=== PATIENT | female | born 1945 | race Caucasian/White ===

== ENCOUNTER 2022-12-26 14:30 | Inpatient (IN) | payer MEDICARE ==
--- OUTSIDE RECORDS SUMMARY | 2022-12-26 14:36 | XMS REPORT | Continuity of Care Document ---
:1945 Author Organization [facility] t Address [address] [place] [address] Care Team Providers Name Role Phone Yrn Sher Attending Clinician Unavailable Yvette Gavin Attending Clinician Unavailable Peyton Hollis Attending Clinician Unavailable [id number] Attending Clinician Unavailable Nery Maurice Attending Clinician RON_S Attending Clinician Unavailable [id number] Admitting Clinician Unavailable RON_Lizeth Admitting Clinician Unavailable Payers Payer Name Policy Type Policy Number Effective Date Expiration Date Lizeth ayoub [facility] [id number] FORMERLY [facility] [id number] 2022 (MEDICARE 00:00:00 REPLACEMENT HMO) Problems Condition Condition Condition Status Onset Resolution Last Treating Co mments Source Name Details Category Date Date Treatment Clinician Date [id number] 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 Medical heart with Center stable angina pectoris Heart Heart Problem Common attack attack [facility] [id number] CKD Problem Common (chronic [facility] kidney - [facility] disease) 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 [facility] disease disease [facility] Anemia Anemia Problem [facility] Sleep Sleep Problem Common apnea apnea [facility] Malignant Cancer of Problem Com mon tumor of right [facility] kidney kidney [facility] Gout Gout Problem [facility] [id number] Complex Problem Commo n renal cyst [facility] Congestive CHF Problem Commo n heart (congestiv [facility] failure e heart - [facility] failure) [facility] Hypothyroi Hypothyroi Problem C [facility] dism dism [facility] Allergic Allergic Problem Commo n rhinitis rhinitis [facility] [id number] Longstandi Problem Co mmon ng [facility] Type II Diabetes Problem Common diabetes DMII [facility] mellitus without - [facility] without complicati complicati [facility] Allergies, Adverse Reactions, Alerts Allergy Allergy Status Severity Reaction(s) Onset Inactive Treating Comm ents Source Name Type Date Date Clinician [id number] Drug Active Unknown Common 82 allergy [facility] duloxeti duloxeti Active Unknown Commo n ne ne [facility] pregabal pregabal Active Unknown Commo n in in [facility] Social History Social Habit Start Date Stop Date Quantity Comments Source Sex Assigned At Com mon [facility] History of Tobacco Use Co mmon [facility] Smoking Status Start Date Stop Date Source Never Smoker [facility] Medications Ordered Filled Start Stop Current Ordering Indication Dosage Frequency Signature Comments Components Source Medication Medication Date Date Medication? Clinician (SIG) Name Name LORazepam 1 LORazepam 2021-09 No BID LORazepam MG MG 2-19 1 MG 00:00: 00 LORazepam 1 LORazepam 2021-09 No BID LORazepam MG MG 2-19 1 MG 00:00: 00 LORazepam 1 LORazepam 2021-09 No BID LORazepam MG MG 2-19 1 MG 00:00: 00 LORazepam 1 LORazepam 2021-09 No BID LORazepam MG MG 2-19 1 MG 00:00: 00 LORazepam 1 LORazepam 1 2021-09 No BID LORazepam MG MG 2-19 1 MG 00:00: 00 LORazepam 1 LORazepam 1 2021-09 No BID LORazepam MG MG 2-19 1 MG 00:00: 00 Montelukast Montelukast No 1{table QD Montelukas Sodium 10 Sodium 10 t} t Sodium MG MG 10 MG Gabapentin Gabapentin No 2{table QID Gabapentin 600 MG 600 MG t} 600 MG Potassium Potassium No 1{capsu BID Potassium Chloride 20 Chloride 20 le} Chloride MEQ MEQ 20 MEQ Fish Oil Fish Oil No Fish Oil predniSONE predniSONE No predniSONE Metoprolol Metoprolol No 1{table BID Metoprolol Tartrate 25 Tartrate 25 t_with_ Tartrate MG MG food} 25 MG Atorvastati Atorvastati No 1{table QD Atorvastat n Calcium n Calcium t} in Calcium 80 MG 80 MG 80 MG Eliquis 5 Eliquis 5 No Eliquis 5 mg 5 mg mg 5 mg mg 5 mg Biotin Biotin No Biotin Torsemide Torsemide No 1{table QD Torsemide 100 MG 100 MG t} 100 MG Allopurinol Allopurinol No Allopurino 300 MG 300 MG l 300 MG Albuterol Albuterol No Albuterol Sulfate HFA Sulfate HFA Sulfate HFA Levothyroxi Levothyroxi No QD Levothyrox ne Sodium ne Sodium ine Sodium 125 MCG 125 MCG 125 MCG Nitroglycer Nitroglycer No Nitroglyce in in rin Fish Oil Fish Oil No Fish Oil NexIUM NexIUM No NexIUM predniSONE predniSONE No predniSONE Metoprolol Metoprolol No 1{table BID Metoprolol Tartrate 25 Tartrate 25 t_with_ Tartrate MG MG food} 25 MG Albuterol Albuterol No Albuterol Sulfate HFA Sulfate HFA Sulfate HFA Biotin Biotin No Biotin Allopurinol Allopurinol No Allopurino 300 MG 300 MG l 300 MG Allopurinol Allopurinol No 1{table QD Allopurino 300 MG 300 MG t} l 300 MG Torsemide Torsemide No 1{table QD Torsemide 100 MG 100 MG t} 100 MG Montelukast Montelukast No 1{table QD Montelukas Sodium 10 Sodium 10 t} t Sodium MG MG 10 MG DiphenhydrA DiphenhydrA No Diphenhydr MINE MINE AMINE Citrate Citrate Citrate Gabapentin Gabapentin No 1{table Gabapentin 600 MG 600 MG t} 600 MG Levothyroxi Levothyroxi No QD Levothyrox ne Sodium ne Sodium ine Sodium 125 MCG 125 MCG 125 MCG Atorvastati Atorvastati No 1{table QD Atorvastat n Calcium n Calcium t} in Calcium 80 MG 80 MG 80 MG Eliquis 5 Eliquis 5 No Eliquis 5 mg 5 mg mg 5 mg mg 5 mg Potassium Potassium No 1{capsu BID Potassium Chloride 20 Chloride 20 le} Chloride MEQ MEQ 20 MEQ Nitroglycer Nitroglycer No Nitroglyce in in rin Fish Oil Fish Oil No Fish Oil NexIUM NexIUM No NexIUM predniSONE predniSONE No predniSONE Metoprolol Metoprolol No 1{table BID Metoprolol Tartrate 25 Tartrate 25 t_with_ Tartrate MG MG food} 25 MG Albuterol Albuterol No Albuterol Sulfate HFA Sulfate HFA Sulfate HFA Biotin Biotin No Biotin Allopurinol Allopurinol No Allopurino 300 MG 300 MG l 300 MG Allopurinol Allopurinol No 1{table QD Allopurino 300 MG 300 MG t} l 300 MG Torsemide Torsemide No 1{table QD Torsemide 100 MG 100 MG t} 100 MG Montelukast Montelukast No 1{table QD Montelukas Sodium 10 Sodium 10 t} t Sodium MG MG 10 MG DiphenhydrA DiphenhydrA No Diphenhydr MINE MINE AMINE Citrate Citrate Citrate Gabapentin Gabapentin No 1{table Gabapentin 600 MG 600 MG t} 600 MG Levothyroxi Levothyroxi No QD Levothyrox ne Sodium ne Sodium ine Sodium 125 MCG 125 MCG 125 MCG Atorvastati Atorvastati No 1{table QD Atorvastat n Calcium n Calcium t} in Calcium 80 MG 80 MG 80 MG Eliquis 5 Eliquis 5 No Eliquis 5 mg 5 mg mg 5 mg mg 5 mg Potassium Potassium No 1{capsu BID Potassium Chloride 20 Chloride 20 le} Chloride MEQ MEQ 20 MEQ Nitroglycer Nitroglycer No Nitroglyce in in rin Fish Oil Fish Oil No Fish Oil NexIUM NexIUM No NexIUM Gabapentin Gabapentin No 1{table Gabapentin 600 MG 600 MG t} 600 MG Metoprolol Metoprolol No 1{table BID Metoprolol Tartrate 25 Tartrate 25 t_with_ Tartrate MG MG food} 25 MG Albuterol Albuterol No Albuterol Sulfate HFA Sulfate HFA Sulfate HFA Biotin Biotin No Biotin Allopurinol Allopurinol No Allopurino 300 MG 300 MG l 300 MG Allopurinol Allopurinol No 1{table QD Allopurino 300 MG 300 MG t} l 300 MG predniSONE predniSONE No predniSONE Torsemide Torsemide No 1{table QD Torsemide 100 MG 100 MG t} 100 MG DiphenhydrA DiphenhydrA No Diphenhydr MINE MINE AMINE Citrate Citrate Citrate Eliquis 5 Eliquis 5 No Eliquis 5 mg 5 mg mg 5 mg mg 5 mg Levothyroxi Levothyroxi No QD Levothyrox ne Sodium ne Sodium ine Sodium 125 MCG 125 MCG 125 MCG Atorvastati Atorvastati No 1{table QD Atorvastat n Calcium n Calcium t} in Calcium 80 MG 80 MG 80 MG Montelukast Montelukast No 1{table QD Montelukas Sodium 10 Sodium 10 t} t Sodium MG MG 10 MG Potassium Potassium No 1{capsu BID Potassium Chloride 20 Chloride 20 le} Chloride MEQ MEQ 20 MEQ Nitroglycer Nitroglycer No Nitroglyce in in rin Fish Oil Fish Oil No Fish Oil NexIUM NexIUM No NexIUM Gabapentin Gabapentin No 1{table Gabapentin 600 MG 600 MG t} 600 MG Metoprolol Metoprolol No 1{table BID Metoprolol Tartrate 25 Tartrate 25 t_with_ Tartrate MG MG food} 25 MG Albuterol Albuterol No Albuterol Sulfate HFA Sulfate HFA Sulfate HFA Biotin Biotin No Biotin Allopurinol Allopurinol No Allopurino 300 MG 300 MG l 300 MG Allopurinol Allopurinol No 1{table QD Allopurino 300 MG 300 MG t} l 300 MG predniSONE predniSONE No predniSONE Torsemide Torsemide No 1{table QD Torsemide 100 MG 100 MG t} 100 MG DiphenhydrA DiphenhydrA No Diphenhydr MINE MINE AMINE Citrate Citrate Citrate Eliquis 5 Eliquis 5 No Eliquis 5 mg 5 mg mg 5 mg mg 5 mg Levothyroxi Levothyroxi No QD Levothyrox ne Sodium ne Sodium ine Sodium 125 MCG 125 MCG 125 MCG Atorvastati Atorvastati No 1{table QD Atorvastat n Calcium n Calcium t} in Calcium 80 MG 80 MG 80 MG Montelukast Montelukast No 1{table QD Montelukas Sodium 10 Sodium 10 t} t Sodium MG MG 10 MG Potassium Potassium No 1{capsu BID Potassium Chloride 20 Chloride 20 le} Chloride MEQ MEQ 20 MEQ Nitroglycer Nitroglycer No Nitroglyce in in rin Fish Oil Fish Oil No Fish Oil NexIUM NexIUM No NexIUM Gabapentin Gabapentin No 1{table Gabapentin 600 MG 600 MG t} 600 MG Metoprolol Metoprolol No 1{table BID Metoprolol Tartrate 25 Tartrate 25 t_with_ Tartrate MG MG food} 25 MG Albuterol Albuterol No Albuterol Sulfate HFA Sulfate HFA Sulfate HFA Biotin Biotin No Biotin Allopurinol Allopurinol No Allopurino 300 MG 300 MG l 300 MG Allopurinol Allopurinol No 1{table QD Allopurino 300 MG 300 MG t} l 300 MG predniSONE predniSONE No predniSONE Torsemide Torsemide No 1{table QD Torsemide 100 MG 100 MG t} 100 MG DiphenhydrA DiphenhydrA No Diphenhydr MINE MINE AMINE Citrate Citrate Citrate Eliquis 5 Eliquis 5 No Eliquis 5 mg 5 mg mg 5 mg mg 5 mg Levothyroxi Levothyroxi No QD Levothyrox ne Sodium ne Sodium ine Sodium 125 MCG 125 MCG 125 MCG Atorvastati Atorvastati No 1{table QD Atorvastat n Calcium n Calcium t} in Calcium 80 MG 80 MG 80 MG Montelukast Montelukast No 1{table QD Montelukas Sodium 10 Sodium 10 t} t Sodium MG MG 10 MG Potassium Potassium No 1{capsu BID Potassium Chloride 20 Chloride 20 le} Chloride MEQ MEQ 20 MEQ Nitroglycer Nitroglycer No Nitroglyce in in rin Fish Oil Fish Oil No Fish Oil NexIUM NexIUM No NexIUM Gabapentin Gabapentin No 1{table Gabapentin 600 MG 600 MG t} 600 MG Metoprolol Metoprolol No 1{table BID Metoprolol Tartrate 25 Tartrate 25 t_with_ Tartrate MG MG food} 25 MG Albuterol Albuterol No Albuterol Sulfate HFA Sulfate HFA Sulfate HFA Biotin Biotin No Biotin Allopurinol Allopurinol No Allopurino 300 MG 300 MG l 300 MG Allopurinol Allopurinol No 1{table QD Allopurino 300 MG 300 MG t} l 300 MG predniSONE predniSONE No predniSONE Torsemide Torsemide No 1{table QD Torsemide 100 MG 100 MG t} 100 MG DiphenhydrA DiphenhydrA No Diphenhydr MINE MINE AMINE Citrate Citrate Citrate Eliquis 5 Eliquis 5 No Eliquis 5 mg 5 mg mg 5 mg mg 5 mg Levothyroxi Levothyroxi No QD Levothyrox ne Sodium ne Sodium ine Sodium 125 MCG 125 MCG 125 MCG Atorvastati Atorvastati No 1{table QD Atorvastat n Calcium n Calcium t} in Calcium 80 MG 80 MG 80 MG Montelukast Montelukast No 1{table QD Montelukas Sodium 10 Sodium 10 t} t Sodium MG MG 10 MG Potassium Potassium No 1{capsu BID Potassium Chloride 20 Chloride 20 le} Chloride MEQ MEQ 20 MEQ NexIUM NexIUM No NexIUM DiphenhydrA DiphenhydrA No Diphenhydr MINE MINE AMINE Citrate Citrate Citrate Nitroglycer Nitroglycer No Nitroglyce in in rin LORazepam 1 LORazepam 1 No 1{table BID LORazepam MG MG t} 1 MG Atorvastati Atorvastati No 1{table QD Atorvastat n Calcium n Calcium t} in Calcium 80 MG 80 MG 80 MG Potassium Potassium No 1{capsu BID Potassium Chloride 20 Chloride 20 le} Chloride MEQ MEQ 20 MEQ Montelukast Montelukast No 1{table QD Montelukas Sodium 10 Sodium 10 t} t Sodium MG MG 10 MG Gabapentin Gabapentin No 2{table QID Gabapentin 600 MG 600 MG t} 600 MG predniSONE predniSONE No predniSONE Metoprolol Metoprolol No 1{table BID Metoprolol Tartrate 25 Tartrate 25 t_with_ Tartrate MG MG food} 25 MG Albuterol Albuterol No Albuterol Sulfate HFA Sulfate HFA Sulfate HFA Eliquis 5 Eliquis 5 No Eliquis 5 mg 5 mg mg 5 mg mg 5 mg Allopurinol Allopurinol No 1{table QD Allopurino 300 MG 300 MG t} l 300 MG Torsemide Torsemide No 1{table QD Torsemide 100 MG 100 MG t} 100 MG Fish Oil Fish Oil No Fish Oil Biotin Biotin No Biotin Levothyroxi Levothyroxi No QD Levothyrox ne Sodium ne Sodium ine Sodium 125 MCG 125 MCG 125 MCG NexIUM NexIUM No NexIUM DiphenhydrA DiphenhydrA No Diphenhydr MINE MINE AMINE Citrate Citrate Citrate Nitroglycer Nitroglycer No Nitroglyce in in rin LORazepam 1 LORazepam 1 No 1{table BID LORazepam MG MG t} 1 MG Montelukast Montelukast No 1{table QD Montelukas Sodium 10 Sodium 10 t} t Sodium MG MG 10 MG Gabapentin Gabapentin No 2{table QID Gabapentin 600 MG 600 MG t} 600 MG Potassium Potassium No 1{capsu BID Potassium Chloride 20 Chloride 20 le} Chloride MEQ MEQ 20 MEQ Fish Oil Fish Oil No Fish Oil predniSONE predniSONE No predniSONE Metoprolol Metoprolol No 1{table BID Metoprolol Tartrate 25 Tartrate 25 t_with_ Tartrate MG MG food} 25 MG Atorvastati Atorvastati No 1{table QD Atorvastat n Calcium n Calcium t} in Calcium 80 MG 80 MG 80 MG Eliquis 5 Eliquis 5 No Eliquis 5 mg 5 mg mg 5 mg mg 5 mg Biotin Biotin No Biotin Torsemide Torsemide No 1{table QD Torsemide 100 MG 100 MG t} 100 MG Allopurinol Allopurinol No Allopurino 300 MG 300 MG l 300 MG Albuterol Albuterol No Albuterol Sulfate HFA Sulfate HFA Sulfate HFA Levothyroxi Levothyroxi No QD Levothyrox ne Sodium ne Sodium ine Sodium 125 MCG 125 MCG 125 MCG NexIUM NexIUM No NexIUM DiphenhydrA DiphenhydrA No Diphenhydr MINE MINE AMINE Citrate Citrate Citrate Nitroglycer Nitroglycer No Nitroglyce in in rin LORazepam 1 LORazepam 1 No 1{table BID LORazepam MG MG t} 1 MG Montelukast Montelukast No 1{table QD Montelukas Sodium 10 Sodium 10 t} t Sodium MG MG 10 MG Gabapentin Gabapentin No 2{table QID Gabapentin 600 MG 600 MG t} 600 MG Potassium Potassium No 1{capsu BID Potassium Chloride 20 Chloride 20 le} Chloride MEQ MEQ 20 MEQ Fish Oil Fish Oil No Fish Oil predniSONE predniSONE No predniSONE Metoprolol Metoprolol No 1{table BID Metoprolol Tartrate 25 Tartrate 25 t_with_ Tartrate MG MG food} 25 MG Atorvastati Atorvastati No 1{table QD Atorvastat n Calcium n Calcium t} in Calcium 80 MG 80 MG 80 MG Eliquis 5 Eliquis 5 No Eliquis 5 mg 5 mg mg 5 mg mg 5 mg Biotin Biotin No Biotin Torsemide Torsemide No 1{table QD Torsemide 100 MG 100 MG t} 100 MG Allopurinol Allopurinol No Allopurino 300 MG 300 MG l 300 MG Albuterol Albuterol No Albuterol Sulfate HFA Sulfate HFA Sulfate HFA Levothyroxi Levothyroxi No QD Levothyrox ne Sodium ne Sodium ine Sodium 125 MCG 125 MCG 125 MCG NexIUM NexIUM No NexIUM DiphenhydrA DiphenhydrA No Diphenhydr MINE MINE AMINE Citrate Citrate Citrate Nitroglycer Nitroglycer No Nitroglyce in in rin LORazepam 1 LORazepam 1 No 1{table BID LORazepam MG MG t} 1 MG Vital Signs Vital Name Observation Time Observation Value Comments Source height 2022-07-20 14:00:00 65.00 [in_i] [facility] weight 2022-07-20 14:00:00 200.8 [lb_av] [facility] temperature 2022-07-20 14:00:00 97.3 [degF] [facility] bmi 2022-07-20 14:00:00 33.41 kg/m2 [facility] oximetry 2022-07-20 14:00:00 99 % [facility] respiratory rate 2022-07-20 14:00:00 18 /min Comm on [facility] blood pressure 2022-07-20 14:00:00 112 mm[Hg] [facility] systolic [facility] blood pressure 2022-07-20 14:00:00 55 mm[Hg] [facility] diastolic [facility] Procedures This patient has no known procedures. Encounters Start End Encounter Admission Attending Care Care Encounter Source Date/Time Date/Time Type Type Clinicians Facility Department ID 2022-10-17 Outpatient Nikky, STD[facility] [id number] Common 17:00:01 Yrn [id number] [facility] 2022-09-19 Outpatient Leslye, [facility] [id number] Common 10:22:02 Yvette [id number] [facility] 2022-08-24 Outpatient Peyton Hollis [facility] [id number] Common 08:57:02 [id number] [facility] 2022-07-21 Outpatient Peyton Hollis [facility] [id number] Common 15:20:01 [facility] 2022-07-20 Outpatient Peyton Hollis [facility] [id number] Common 13:03:05 [facility] 2021-11-17 Outpatient 3 [id number] [facility] OTH [id number] [facility] 10:50:01 3092021-11-16 Outpatient 3 [id number] [facility] REF [id number] [facility] 10:46:48 0302021-10-06 Outpatient 3 [id number] [facility] REF [id number] [facility] 13:31:08 12152021-10-06 Outpatient 3 [id number] [facility] REF [id number] [facility] 13:30:10 12132021-10-06 Outpatient 3 [id number] [facility] REF [id number] [facility] 13:29:18 12122022-12-11 2022-12-11 [facility] [id number] [facility] [id number] [facility] 16:30:00 17:30:00 Erwinna [id number] [facility] [id number] 2022-11-20 2022-11-20 [place] [id number] 00:00:00 00:00:00 [id number] [facility] 2022-10-06 2022-10-06 (TEL) STLMLC ST[facility] [id number] Co mmon 00:00:00 00:00:00 [facility] 2022-09-29 2022-09-29 (TEL) STLMLC ST[facility] [id number] Co mmon 00:00:00 00:00:00 [facility] 2022-09-26 2022-09-26 (TEL) STLMLC ST[facility] [id number] Co mmon 00:00:00 00:00:00 [facility] 2022-09-19 2022-09-19 (TEL) STLMLC ST[facility] [id number] Co mmon 00:00:00 00:00:00 [facility] 2022-08-28 2022-08-28 OL DIG E/M STLMLC ST[facility] [id number] Common 00:00:00 00:00:00 SVC 11-20 Spir it MIN [facility] 2022-08-27 2022-08-27 (TEL) STLMLC ST[facility]MLC [id number] Co mmon 00:00:00 00:00:00 [facility] 2022-08-15 2022-08-15 (TEL) STLMLC STL[facility]C [id number] Co mmon 00:00:00 00:00:00 [facility] 2022-08-15 2022-08-15 (TEL) STLMLC ST[facility] [id number] Co mmon 00:00:00 00:00:00 [facility] 2022-07-28 2022-07-28 Outpatient DMG DMG [id number] [facility] 00:00:00 00:00:00 [id number] [facility] 2022-07-24 2022-07-24 (TEL) STLMLC ST[facility]C [id number] Co mmon 00:00:00 00:00:00 [facility] 2022-07-20 2022-07-20 OFFICE STLMLC ST[facility]MLC [id number] Co mmon 00:00:00 00:00:00 VISIT [facility] it PT LEVEL 2 - [facility] Results This patient has no known results.
--- NOTE | 2022-12-26 15:12 | RAD REPORT ---
EXAM DESCRIPTION: CT - Ct Stroke Brain Wo Cont - 12/26/2022 3:01 pm CLINICAL HISTORY: STROKE ALERT COMPARISON: No comparisons TECHNIQUE: All CT scans are performed using dose optimization technique as appropriate and may inclu de automated exposure control or mA/KV adjustment according to patient size. FINDINGS: No intracranial hemorrhage, hydrocephalus or extra-axial fluid collection.Mild brain atrop hy.No areas of brain edema or evidence of midline shift. The paranasal sinuses and mastoids are clear. The calvarium is intact. IMPRESSION: No acute intracranial abnormality.
[2022-12-26] MEDS ORDERED: FAMOTIDINE 20 MG/2 ML VIAL IV ONE (15:19)
[2022-12-26] MEDS ORDERED: DIPHENHYDRAMINE 50 MG/ML VIAL ONE (15:19)
[2022-12-26] MEDS ORDERED: METHYLPREDNISOLONE 125 MG INJ ONE (15:19)
[2022-12-26 15:26] LABS: Hematocrit 32.5 % (36.0-45.0); Lymphocytes % 24.3 % (15.3-44.8); MCV 98.9 fL (80-100); MPV 8.3 fL (7.6-11.3); RBC Red Blood Cell Count 3.29 M/uL (3.86-4.86)
[2022-12-26 15:30] LABS: Protime INR 1.55
[2022-12-26 15:43] LABS: Albumin 3.9 g/dL (3.4-5.0); Bilirubin Direct 0.2 mg/dL (0-0.2); Bilirubin Total 0.6 mg/dL (0.2-1.0); Magnesium 2.4 mg/dL (1.6-2.4); Protein, Total 7.4 g/dL (6.4-8.2); Troponin High Sensitivity 14.2 pg/mL (<58.9)
--- NOTE | 2022-12-26 15:48 | RAD REPORT ---
EXAM DESCRIPTION: RAD - Chest Single View - 12/26/2022 3:33 pm CLINICAL HISTORY: CVA Chest pain. COMPARISON: <Comparisons> FINDINGS: Portable technique limits examination quality. Mild interstitial pulmonary edema. The heart is moderately enlarged. Dual lead pacer device is presen t.Sternotomy wires noted. IMPRESSION: Mild to moderate CHF.
--- NOTE | 2022-12-26 16:35 | RAD REPORT ---
EXAM DESCRIPTION: CT - Head angio - 12/26/2022 4:24 pm CLINICAL HISTORY: cva Headache, drowsiness, CVA symptomology COMPARISON: Ct Stroke Brain Wo Cont dated 12/26/2022 TECHNIQUE: CT angiography of the head was performed with MIPs. All CT scans are performed using dose optimization technique as appropriate and may include automated exposure control or mA/KV adjustment according to patient size. FINDINGS: No evidence of large vessel occlusion. No evidence of aneurysm is detected. No flow-limiti ng stenosis or vascular malformation identified. Antegrade flow is seen in the vertebral arteries. Left vertebral artery is dominant with moderate ath erosclerosis. The visualized dural venous sinuses are patent. IMPRESSION: No significant flow abnormality is detected.
--- NOTE | 2022-12-26 16:38 | RAD REPORT ---
EXAM DESCRIPTION: CT - Neck Angio - 12/26/2022 4:24 pm CLINICAL HISTORY: cva COMPARISON: No comparisons TECHNIQUE: CT angiography of the neck vessels was performed with MIPs. All CT scans are performed using dose optimization technique as appropriate and may include automated exposure control or mA/KV adjustment according to patient size. FINDINGS: A left aortic arch is identified with normal three vessel configuration of the great vesse ls. No significant flow abnormality is seen of the common carotid bilaterally. Mild atherosclerotic plaqu ing is seen in both common carotid arteries. There is significant atherosclerotic plaquing noted involving the right proximal internal carotid art ernesto. Stenosis is estimated at 50-60% utilizing NASCET criteria. Moderate plaquing of the left carotid bulb is also seen, predominately hard plaque. Stenosis of less than 50% based on NASCET criteria is suspected. Normal flow is seen within both vertebral arteries. The left vertebral artery appears dominant. IMPRESSION: Moderate hard plaquing is seen in both carotid bulb/proximal internal carotid arteries, greater on the right. The findings result in 50-60% stenosis on the right based on NASCET criteria.
--- NOTE | 2022-12-26 16:50 | ER ---
Nurse's Notes [facility] Name: Felecia Goode Age: 77 yrs Sex: Female : 1945 Arrival Date: 12/26/2022 Time: 14:30 Bed 16 Private MD: Diagnosis: Cerebrovascular accident Presentation: 12/26 14:41 Chief complaint: Patient states: she went to bed last night at approx 2130 after not ap3 feeling well all day. patient states when she woke up this morning at 0115 this morning she noticed she was having right sided weakness and numbness. patient also reported she was having a headache in the hospital social worker hours as well, and that her right eye had some redness to it. Patient went to visit your PCP this morning who sent her over to the ED for further evaluation. Patient now states she "feels foggy". Chief complaint:. Coronavirus screen: At this time, the client does not indicate any symptoms associated with coronavirus-19. Ebola Screen: No symptoms or risks identified at this time. Initial Sepsis Screen: Does the patient meet any 2 criteria? No. Patient's initial sepsis screen is negative. Does the patient have a suspected source of infection? No. Patient's initial sepsis screen is negative. Risk Assessment: Do you want to hurt yourself or someone else? Patient reports no desire to harm self or others. Onset of symptoms was December 26, 2022 at 09:40. 14:41 Method Of Arrival: Wheelchair ap3 14:41 Acuity: KENA 3 ap3 14:53 Note Code stroke called 1453. ap3 Triage Assessment: 14:48 General: Appears comfortable, Behavior is calm, cooperative. Pain: Complains of pain in ap3 head Pain currently is 0 out of 10 on a pain scale. at worst was 3 out of 10 on a pain scale. Pain began this morning in the middle of the night Also complains of right sided weakness. Neuro: Oriented to person, place, time, situation, Speech patient reports feeling like she is having a hard time finding her words. Reports numbness in right arm and right leg weakness in right arm and right leg. Cardiovascular: Patient's skin is warm and dry. Respiratory: Airway is patent Respiratory effort is even, unlabored, Respiratory pattern is regular, symmetrical. Historical: - Allergies: 14:45 Iodine; ap3 14:45 Lyrica; ap3 14:45 Cymbalta; ap3 - PMHx: 14:45 Diabetes mellitus; Hypercholesterolemia; pacemaker; Atrial fibrillation; ap3 - PSHx: 14:45 tripple bypass; cardiac stents; ap3 - Immunization history:: Adult Immunizations unknown. - Social history:: Smoking status: Patient denies any tobacco usage or history of. - Family history:: not pertinent. Screenin:47 Abuse screen: Denies threats or abuse. Nutritional screening: No deficits noted. ap3 Tuberculosis screening: No symptoms or risk factors identified. 15:45 [facility] ED Fall Risk Assessment (Adult) History of falling in the last 3 months, ko1 including since admission No falls in past 3 months (0 pts) Confusion or Disorientation No (0 pts) Intoxicated or Sedated No (0 pts) Impaired Gait Yes (1 pt) Mobility Assist Device Used Yes (1 pt) Altered Elimination No (0 pt) Score/Fall Risk Level 0 - 2 = Low Risk Oriented to surroundings, Maintained a safe environment, Educated pt \\T\\ family on fall prevention, incl call for assistance when getting out of bed, Assessed \\T\\ reinforced patient's understanding of fall precautions, Provided non-skid footwear, Hourly rounding (assess needs \\T\\ fall precautionary measures) done, Used ambulatory aids as needed (educated on \\T\\ assisted with), Used gait belt as appropriate. Assessment: 15:15 General: Appears in no apparent distress. Behavior is calm, cooperative, appropriate ko1 for age. Pain: Denies pain. Neuro: Reports occasional numbness to right finger tips but symptoms have improved. Cardiovascular: Reports None Patient's skin is warm and dry. edema to bilateral lower extremities. Respiratory: No deficits noted. GI: No deficits noted. : No deficits noted. EENT: No deficits noted. Derm: No deficits noted. Musculoskeletal: No deficits noted. 20:09 Reassessment: See [facility] for further charting. mb9 Vital Signs: 14:41 BP 115 / 64; Pulse 60; Resp 17; Temp 98.3; Pulse Ox 97% ; Weight 99.79 kg; Height 5 ft. ap3 5 in. ; Pain 0/10; 15:00 BP 102 / 80; Pulse 64; Resp 18; Pulse Ox 100% ; ko1 15:15 BP 116 / 58; Pulse 63; Resp 16; Pulse Ox 100% ; ko1 15:30 BP 118 / 75; Pulse 64; Resp 16; Pulse Ox 100% on R/A; ko1 15:45 BP 115 / 69; Pulse 62; Resp 16; Pulse Ox 99% on R/A; ko1 18:03 BP 124 / 69; Pulse 76; Resp 18; Pulse Ox 99% ; ko1 14:41 Body Mass Index 36.61 (99.79 kg, 165.1 cm) ap3 14:41 Pain Scale: Adult ap3 ED Course: 14:32 Patient arrived in ED. rg4 14:39 Venkat Munoz MD is Attending Physician. rt 14:44 Triage completed. ap3 15:02 CT Stroke Brain w/o Contrast In Process Unspecified. EDMS 15:08 Brisa Petit, RN is Primary Nurse. ko1 15:34 Stroke CXR 1 View In Process Unspecified. EDMS 15:40 Inserted saline lock: 20 gauge in right antecubital area, using aseptic technique. ko1 Blood collected. Patient maintains SpO2 saturation greater than 95% on room air. 15:41 Basic Metabolic Panel Sent. ko1 15:41 Hepatic Function Sent. ko1 15:41 High Sensitivity Troponin Sent. ko1 15:41 Magnesium Sent. ko1 15:45 Patient has correct armband on for positive identification. Placed in gown. Bed in low ko1 position. Side rails up X2. Client placed on continuous cardiac and pulse oximetry monitoring. NIBP monitoring applied. monitoring coordinator on. Door closed. Lights dimmed. Warm blanket given. 16:26 CT Neck Angio In Process Unspecified. EDMS 16:26 CT Head Angio In Process Unspecified. EDMS 16:49 Yrn Sher MD is Hospitalizing Provider. rt 18:03 No provider procedures requiring assistance completed. ko1 19:35 Primary Nurse role handed off by Brisa Petit, RN jl7 Administered Medications: 15:26 Drug: diphenhydrAMINE IVP 50 mg Route: IVP; Site: right antecubital; ko1 18:05 Follow up: Response: No adverse reaction ko1 15:26 Drug: Famotidine IVP 20 mg Route: IVP; Site: right antecubital; ko1 18:05 Follow up: Response: No adverse reaction ko1 15:27 Not Given (Other Intervention Used): MethylPREDNISolone Sodium Succinate IM 125 mg IM ko1 once 15:30 Drug: MethylPrednisoLONE IVP 125 mg Route: IVP; Site: right antecubital; ko1 18:05 Follow up: Response: No adverse reaction ko1 16:50 Drug: NS 0.9% IV 1000 ml Route: IV; Rate: 1 bolus; Site: right antecubital; ko1 18:05 Follow up: Response: No adverse reaction; IV Status: Completed infusion; IV Intake: ko1 1000ml 16:53 Not Given (Patient Refused): Aspirin PO Chewable Tablet 324 mg PO once; 81 mg tablets x ko1 4 Intake: 18:03 IV: 1000ml (IV Fluid); Total: 1000ml. ko1 18:05 IV: 1000ml; Total: 2000ml. ko1 Output: 16:46 Urine: 500ml (Voided); Total: 500ml. ko1 18:03 Urine: 700ml (Voided); Total: 1200ml. ko1 Outcome: 16:50 Decision to Hospitalize by Provider. rt 23:22 Patient left the ED. mb9 Signatures: Dispatcher [employer] EDPromise Camacho rg4 Chauncey Shetty RN RN jl7 Janie Cadet RN RN ap3 Brisa Petit RN RN ko1 Heike Winters RN RN mb9 Venkat Munoz MD MD rt Corrections: (The following items were deleted from the chart) 14:48 14:47 Arm band placed on ap3 ap3 16:46 15:15 Cardiovascular: Reports None Patient's skin is warm and dry. ko1 ko1
--- NOTE | 2022-12-26 16:50 | EDPHYS ---
Physician Documentation [facility] Name: Felecia Goode Age: 77 yrs Sex: Female : 1945 Arrival Date: 12/26/2022 Time: 14:30 Bed 16 Private MD: ED Physician Venkat Munoz HPI: 12/26 17:05 This 77 yrs old Female presents to ER via Wheelchair with complaints of Numbness Of rt Hand, Headache. 17:05 Patient presents to the ED from primary care office out of concern for possible acute rt stroke. Patient has not been feeling well since yesterday, however, she stated that she noted a right-sided numbness, weakness starting about 1 AM this morning. The patient states that symptoms have somewhat improved but have not resolved. Patient was seen her primary care's office today who sent her to the ED to be evaluated for acute CVA, possible LVO. Denies other acute complaints at this time, symptoms are moderate in severity, no other aggravating or alleviating factors. Historical: - Allergies: 14:45 Iodine; ap3 14:45 Lyrica; ap3 14:45 Cymbalta; ap3 - PMHx: 14:45 Diabetes mellitus; Hypercholesterolemia; pacemaker; Atrial fibrillation; ap3 - PSHx: 14:45 tripple bypass; cardiac stents; ap3 - Immunization history:: Adult Immunizations unknown. - Social history:: Smoking status: Patient denies any tobacco usage or history of. - Family history:: not pertinent. ROS: 17:05 Constitutional: Negative for fever, chills, and weight loss, Cardiovascular: Negative rt for chest pain, palpitations, and edema, Respiratory: Negative for shortness of breath, cough, wheezing, and pleuritic chest pain, Abdomen/GI: Negative for abdominal pain, nausea, vomiting, diarrhea, and constipation, Skin: Negative for injury, rash, and discoloration, Psych: Negative for depression, anxiety, suicide ideation, homicidal ideation, and hallucinations. 17:05 Neuro: Positive for numbness, weakness. Exam: 17:05 Constitutional: This is a well developed, well nourished patient who is awake, alert, rt and in no acute distress. Head/Face: Normocephalic, atraumatic. Chest/axilla: Normal chest wall appearance and motion. Nontender with no deformity. No lesions are appreciated. Cardiovascular: Regular rate and rhythm with a normal S1 and S2. No gallops, murmurs, or rubs. Normal PMI, no JVD. No pulse deficits. Respiratory: Lungs have equal breath sounds bilaterally, clear to auscultation and percussion. No rales, rhonchi or wheezes noted. No increased work of breathing, no retractions or nasal flaring. Abdomen/GI: Soft, non-tender, with normal bowel sounds. No distension or tympany. No guarding or rebound. No evidence of tenderness throughout. Skin: Warm, dry with normal turgor. Normal color with no rashes, no lesions, and no evidence of cellulitis. MS/ Extremity: Pulses equal, no cyanosis. Neurovascular intact. Full, normal range of motion. Psych: Awake, alert, with orientation to person, place and time. Behavior, mood, and affect are within normal limits. 17:05 ECG was reviewed by the Attending Physician. 17:05 Neuro: Slight now fluency of speech, sensory deficits on the right side of the face, right upper and right lower extremities. Slight drift noted on right upper and right lower extremities, strength otherwise intact. No other cranial nerve deficits.. Vital Signs: 14:41 BP 115 / 64; Pulse 60; Resp 17; Temp 98.3; Pulse Ox 97% ; Weight 99.79 kg; Height 5 ft. ap3 5 in. ; Pain 0/10; 15:00 BP 102 / 80; Pulse 64; Resp 18; Pulse Ox 100% ; ko1 15:15 BP 116 / 58; Pulse 63; Resp 16; Pulse Ox 100% ; ko1 15:30 BP 118 / 75; Pulse 64; Resp 16; Pulse Ox 100% on R/A; ko1 15:45 BP 115 / 69; Pulse 62; Resp 16; Pulse Ox 99% on R/A; ko1 18:03 BP 124 / 69; Pulse 76; Resp 18; Pulse Ox 99% ; ko1 14:41 Body Mass Index 36.61 (99.79 kg, 165.1 cm) ap3 14:41 Pain Scale: Adult ap3 MDM: 14:53 Patient medically screened. rt 17:09 Differential diagnosis: CVA, TIA. Data reviewed: vital signs, nurses notes, lab test rt result(s), EKG, radiologic studies. Management of patient was discussed with the following: Primary Care Provider: Agrees to admit. I considered the following discharge prescriptions or medication management in the emergency department Medications were administered in the Emergency Department. See MAR. Independent interpretation of the following test(s) in the Emergency Department CT Scan: My interpretation is No hemorrhage seen on my interpretation of the CT scan images. Discussion of test interpretation with radiology: I had a discussion with radiology regarding a test interpretation. No hemorrhage seen. Care significantly affected by the following chronic conditions: Congestive Heart Failure. Counseling: I had a detailed discussion with the patient and/or guardian regarding: the historical points, exam findings, and any diagnostic results supporting the discharge/admit diagnosis, lab results, radiology results, the need for further work-up and treatment in the hospital. 12/26 14:54 Order name: Basic Metabolic Panel; Complete Time: 15:44 rt 12/26 14:54 Order name: CBC with Diff; Complete Time: 15:44 rt 12/26 14:54 Order name: Hepatic Function; Complete Time: 15:44 rt 12/26 14:54 Order name: High Sensitivity Troponin; Complete Time: 15:44 rt 12/26 14:54 Order name: Magnesium; Complete Time: 15:44 rt 12/26 14:54 Order name: Protime (+inr); Complete Time: 15:44 rt 12/26 14:54 Order name: Ptt, Activated; Complete Time: 15:44 rt 12/26 22:33 Order name: Urinalysis w/ reflexes EDMS 12/26 14:54 Order name: CT Stroke Brain w/o Contrast; Complete Time: 15:44 rt 12/26 14:54 Order name: Stroke CXR 1 View; Complete Time: 16:41 rt 12/26 14:56 Order name: CT Neck Angio; Complete Time: 16:41 rt 12/26 14:56 Order name: CT Head Angio; Complete Time: 16:41 rt 12/26 14:54 Order name: EKG; Complete Time: 14:55 rt 12/26 16:57 Order name: CONS Physician Consult EDMS 12/26 14:54 Order name: Accucheck; Complete Time: 15:11 rt 12/26 14:54 Order name: Cardiac monitoring; Complete Time: 15:11 rt 12/26 14:54 Order name: EKG - Nurse/Tech; Complete Time: 15:11 rt 12/26 14:54 Order name: IV Saline Lock; Complete Time: 15:11 rt 12/26 14:54 Order name: Labs collected and sent; Complete Time: 15:11 rt 12/26 14:54 Order name: NPO; Complete Time: 15:11 rt 12/26 14:54 Order name: O2 Per Protocol; Complete Time: 15:11 rt 12/26 14:54 Order name: O2 Sat Monitoring; Complete Time: 15:11 rt 12/26 14:54 Order name: Stroke Swallow Screen; Complete Time: 21:49 rt EC:05 Rate is 62 beats/min. Rhythm is regular, Normal Sinus Rhythm with No ectopy, Left rt bundle branch block. ND interval is normal. QRS interval is normal. QT interval is normal. Administered Medications: 15:26 Drug: diphenhydrAMINE IVP 50 mg Route: IVP; Site: right antecubital; ko1 18:05 Follow up: Response: No adverse reaction ko1 15:26 Drug: Famotidine IVP 20 mg Route: IVP; Site: right antecubital; ko1 18:05 Follow up: Response: No adverse reaction ko1 15:27 Not Given (Other Intervention Used): MethylPREDNISolone Sodium Succinate IM 125 mg IM ko1 once 15:30 Drug: MethylPrednisoLONE IVP 125 mg Route: IVP; Site: right antecubital; ko1 18:05 Follow up: Response: No adverse reaction ko1 16:50 Drug: NS 0.9% IV 1000 ml Route: IV; Rate: 1 bolus; Site: right antecubital; ko1 18:05 Follow up: Response: No adverse reaction; IV Status: Completed infusion; IV Intake: ko1 1000ml 16:53 Not Given (Patient Refused): Aspirin PO Chewable Tablet 324 mg PO once; 81 mg tablets x ko1 4 Disposition Summary: 12/26/22 16:50 Hospitalization Ordered Hospitalization Status: Observation rt Provider: Yrn Sher rt Location: Telemetry/MedSurg (observation) rt Condition: Stable rt Problem: new rt Symptoms: have improved rt Bed/Room Type: Standard rt Room Assignment: 431(12/26/22 22:03) cg Diagnosis - Cerebrovascular accident rt Forms: - Medication Reconciliation Form rt - SBAR form rt Signatures: Dispatcher [employer] Maggy Regalado, RN RN cg Janie Cadet RN RN ap3 Brisa Petit, RN RN ko1 Venkat Munoz MD MD rt Corrections: (The following items were deleted from the chart) 22:03 16:50 rt cg
[2022-12-26] MEDS ORDERED: NA CHLORIDE 0.9% 1,000 ML ONE (16:54)
--- NOTE | 2022-12-26 17:22 | P.HP ---
Certification for Inpatient Patient admitted to: Inpatient With expected LOS: >2 Midnights Patient will require the following post-hospital care: Home Health Services Practitioner: I am a practitioner with admitting privileges, knowledge of patient current condition, hospital course, and medical plan of care. Services: Services provided to patient in accordance with Admission requirements found in Title 42 Section 412.3 of the Code of Federal Regulations Patient History Date of Service: 12/26/22 Primary Care Provider: Nikky Reason for admission: tia History of Present Illness: Patient is a pleasant woman with a history of heart failure. She was in the office this morning. She woke up at 1am today with some numbness and weakness in the right side of her body. She was up till 3:30 Went back to sleep. In the morning she had difficulty finding words. She was having difficulty reading and her neighbor brought her to the office. The patient was having some weakness in her right side in relation to her left. Discussed with Dr. Henson and sent the patient to the ER. The CT scan did not show any large vessel occlusion that would benefit from intervention. Will admit to rule out stroke in evolution Review of Systems 10-point ROS is otherwise unremarkable Neurological: Weakness (right side ), Numbness (right side) Physical Examination - Physical Exam General: Alert, Mild distress HEENT: Atraumatic, PERRLA, Mucous membr. moist/pink, EOMI, Sclerae nonicteric Neck: Supple, 2+ carotid pulse no bruit, No LAD, Without JVD or thyroid abnormality Respiratory: Clear to auscultation bilaterally, Normal air movement Cardiovascular: Regular rate/rhythm, Normal S1 S2 Gastrointestinal: Normal bowel sounds, No tenderness Musculoskeletal: No tenderness Integumentary: No rashes Neurological: Normal gait, Normal speech, Normal tone, Normal affect, Abnormal strength (4/5 on the right ) Lymphatics: No axilla or inguinal lymphadenopathy - Studies Laboratory Data (last 24 hrs) 12/26/22 15:15: PT 17.1 H, INR 1.55, APTT 39.5 H 12/26/22 15:15: WBC 4.20 L, Hgb 10.7 L, Hct 32.5 L, Plt Count 188 12/26/22 15:15: Sodium 136, Potassium 4.0, BUN 104 H, Creatinine 2.49 H, Glucose 125 H, Magnesium 2.4, Total Bilirubin 0.6, AST 26, ALT 27, Alkaline Phosphatase 114 Assessment and Plan - Problems (Diagnosis) (1) TIA (transient ischemic attack) Current Visit: Yes Status: Acute Plan: will admit for neurocheck consult to Dr. Henson. Start her on aspirin, folic acid and magnesium. Will order an MRI in the morning. stroke protochol (2) Heart failure Current Visit: Yes Status: Acute Plan: consult to Dr. panchal for the cardiac and the carotid stenosis Qualifiers: Heart failure type: systolic Heart failure chronicity: chronic Qualified Code(s): I50.22 - Chronic systolic (congestive) heart failure (3) CKD stage 4 secondary to hypertension Current Visit: Yes Status: Acute Plan: will give gentle fluids. consult to nephro Discharge Plan: Home Plan to discharge in: 48 Hours - Advance Directives Does patient have a Living Will: No Does patient have a Durable POA for Healthcare: No - Code Status/Comfort Care Code Status Assessed: Yes Physician Review: Patient Assessed, Agree with Above Assessment and Plan Critical Care: No Time Spent Managing Pts Care (In Minutes): 75
[2022-12-26 22:33] LABS: Specific Gravity 1.013 (1.005-1.030); Urine Bacteria <20 /HPF (<20); Urine Bilirubin NEGATIVE (Negative); Urine Blood Negative (Negative); Urine Clarity Clear (Clear); Urine Color Colorless (Yellow); Urine Glucose NEGATIVE (Negative); Urine Mucus Slight /HPF (None Seen); Urine Protein NEGATIVE (Negative); Urine RBC <5 /HPF (None Seen); Urine Urobilinogen Normal (Normal)
[2022-12-27 06:29] LABS: Absolute Lymphocytes (CBC) 0.6 K/uL (0.7-4.9); Hematocrit 33.6 % (36.0-45.0); Lymphocytes % 18.5 % (15.3-44.8); MCV 98.3 fL (80-100); MPV 9.1 fL (7.6-11.3); RBC Red Blood Cell Count 3.42 M/uL (3.86-4.86)
[2022-12-27 06:37] LABS: Phosphorus 5.4 mg/dL (2.5-4.9); Uric Acid 4.3 mg/dL (2.6-6.0)
[2022-12-27 06:51] LABS: Albumin 3.6 g/dL (3.4-5.0); Bilirubin Total 0.5 mg/dL (0.2-1.0); Potassium 3.4 mEq/L (3.5-5.1); Thyroid Stimulating Hormone 0.808 uIU/mL (0.358-3.740)
--- NOTE | 2022-12-27 08:30 | P.PN ---
Subjective Date of Service: 12/27/22 Primary Care Provider: Nikky Chief Complaint: tia Subjective: Improving Review of Systems 10-point ROS is otherwise unremarkable General: Weakness Neurological: Weakness, Other (headache, improving ) Physical Examination - Vital Signs Temperature: 97.4 F Blood Pressure: 122/60 Pulse: 68 Respirations: 17 Pulse Ox (%): 96 - Physical Exam General: Alert, In no apparent distress HEENT: Atraumatic, PERRLA, EOMI Neck: Supple, JVD not distended Respiratory: Clear to auscultation bilaterally, Normal air movement Cardiovascular: Regular rate/rhythm, Normal S1 S2 Gastrointestinal: Normal bowel sounds, No tenderness Musculoskeletal: No tenderness Integumentary: No rashes Neurological: Normal speech, Normal tone, Normal affect Lymphatics: No axilla or inguinal lymphadenopathy - Studies Laboratory Data (last 24 hrs) 12/26/22 15:15: PT 17.1 H, INR 1.55, APTT 39.5 H 12/26/22 15:15: WBC 4.20 L, Hgb 10.7 L, Hct 32.5 L, Plt Count 188 12/26/22 15:15: Sodium 136, Potassium 4.0, BUN 104 H, Creatinine 2.49 H, Glucose 125 H, Magnesium 2.4, Total Bilirubin 0.6, AST 26, ALT 27, Alkaline Phosphatase 114 Assessment And Plan - Current Problems (Diagnosis) (1) TIA (transient ischemic attack) Current Visit: Yes Status: Acute Plan: will admit for neurocheck consult to Dr. Henson. Start her on aspirin, folic acid and magnesium. Will order an MRI in the morning. stroke protochol (2) Heart failure Current Visit: Yes Status: Acute Plan: consult to Dr. panchal for the cardiac and the carotid stenosis Qualifiers: Heart failure type: systolic Heart failure chronicity: chronic Qualified Code(s): I50.22 - Chronic systolic (congestive) heart failure (3) CKD stage 4 secondary to hypertension Current Visit: Yes Status: Acute Plan: will give gentle fluids. consult to nephro 4.19 patient is improving. She is being seen by Dr.. Martínez. Baseline is ckd stage 3b Discharge Plan: Home Plan to discharge in: 24 Hours - Code Status/Comfort Care Code Status Assessed: No Physician Review: Patient Assessed, Agree with Above Assessment and Plan Critical Care: No Time Spent Managing PTS Care (In Minutes): 20
--- NOTE | 2022-12-27 08:39 | RAD REPORT ---
EXAM DESCRIPTION: US - Renal Ultrasound-Complete - 12/27/2022 5:06 am CLINICAL HISTORY: ILNDA/ CKD COMPARISON: No comparisons FINDINGS: Both kidneys are normal in size, shape and echotexture. Small benign bilateral renal cysts . The right kidney measures 10.9 x 3.9 x 3.6 cm. No hydronephrosis, focal mass or perinephric fluid. The left kidney measures 10.3 x 5.3 x 4.2 cm. No hydronephrosis, focal mass or perinephric fluid. The urinary bladder is incompletely distended without gross abnormality seen. IMPRESSION: Benign bilateral renal cysts, otherwise negative study.
[2022-12-27] MEDS: FOLIC ACID 1 MG TABLET PO SCH (08:41)
[2022-12-27] MEDS: APIXABAN 5 MG TABLET PO SCH (08:42)
[2022-12-27] MEDS: ASPIRIN EC 81 MG TAB PO SCH (08:42)
[2022-12-27] MEDS: MAGNESIUM OXIDE 400 MG TAB PO SCH (08:42)
--- NOTE | 2022-12-27 09:07 | CON ---
Date of Consultation: 12/27/2022 Reason For Consultation: CVA and history of CABG and atrial fibrillation. History Of Present Illness: Ms. Goode is 77. Has a history of CABG, a stent, pacemakers, atrial fibrillation, diabetes, dyslipidemia. Came in with an episode of headache, slightly altered mental s tatus, numbness in the hands. Has been having a lot of palpitations. Neck CTA showed a 50% to 60% r ight internal carotid artery stenosis. Chest CT of the head, however, was negative. Chest x-ray beba wed congestive heart failure. Creatinine is 2.5, which is chronic. Nephrology has seen her. Renal ultrasound is pending. Neurology consultation is pending. Echocardiogram is pending. The patient i s doing a lot better than when she first came in. Her Eliquis has been held and this will be restart ed. Allergies: SHE IS ALLERGIC TO IODINE, DULOXETINE, AND LYRICA. Review of Systems: Negative. Social History: Negative. Family History: Negative. Medications: At home supposed to be Singulair, torsemide, Eliquis, Lipitor, Synthroid, Neurontin, an d metoprolol. Physical Examination: General: She was neurologically nonfocal. Vital Signs: Stable. She is in a paced rhythm, afebrile. HEENT: Negative. Neck: Supple with no bruit. Chest: Clear. Cardiac: Revealed atrial fibrillation, paced rhythm. Abdomen: Benign. Extremities: Revealed no clubbing, cyanosis. She only had trace edema. Diagnostic Data: As stated earlier. Impression And Plan: This is a patient, who has paroxysmal atrial fibrillation. Has had a lot of pa lpitations lately. Comes in with what appears to be a transient ischemic attack. So far, her CT of the head is negative. She had headache. She had numbness in the hand. She had altered mental statu s. All that has resolved. I would definitely resume her Eliquis and continue the rest of her regime n. She does follow up with Dr. Moran. Has had 8 ablations and 4 cardioversions in the past, but a trial fibrillation is not an issue except that it may because known to have embolic stroke. I would definitely resume her Eliquis. She needs to have her carotids followed up with a carotid ultrasound by Dr. Moran in the near future. She has renal insufficiency. Nephrology is following. She has w hat sounds like acute on chronic diastolic congestive heart failure. She is being diuresed. She has had a history of coronary artery bypass graft, stent, pacemakers, diabetes, and dyslipidemia, all th ose are stable at this point. Again, I would resume her regimen, consider to increase diuresis, resu me Eliquis. Echocardiogram is pending. We will continue to follow. SANDIE/HARMONY Voice ID: [id number] Report ID: [id number]
--- NOTE | 2022-12-27 14:23 | EKG ---
Test Date: 2022-12-26 Test Time: 15:13:03 Director Of Business Continuity: GEETHA MEASUREMENT RESULTS: Intervals: Rate: 62 MN: 334 QRSD: 228 QT: 532 QTc: 539 [place]: P: 87 MN: 334 QRS: -62 T: 98 INTERPRETIVE STATEMENTS: v paced rhythm Left axis deviation Nonspecific intraventricular block Lateral infarct, age undetermined Abnormal ECG No previous ECG available for comparison Electronically Signed On 12-27-22 14:21:26 CDT by Oswaldo De Anda
--- NOTE | 2022-12-27 14:38 | ECHO ---
HEIGHT: 5 ft 5 in WEIGHT: 218 lb 0 oz DATE OF STUDY: 12/27/[address]: Oswaldo De Anda MD 2-DIMENSIONAL: YES M.MODE: YES DOPPLER: YES COLOR FLOW: YES TDS: PORTABLE: YES DEFINITY: BUBBLE STUDY: DIAGNOSIS: CEREBRAL VASCULAR ACCIDENT CARDIAC HISTORY: CATHERIZATION: YES SURGERY: YES PROSTHETIC VALVE: NO PACEMAKER: YES MEASUREMENTS (cm) DIASTOLIC (NORMALS) SYSTOLIC (NORMALS) IVSd 1.0 (0.6-1.2) LA Diam 4.8 (1.9-4.0) LVEF 76% LVIDd 4.4 (3.5-5.7) LVIDs 2.4 (2.0-3.5) %FS 45% LVPWd 1.1 (0.6-1.2) Ao Diam 2.7 (2.0-3.7) 2 DIMENSIONAL ASSESSMENT: RIGHT ATRIUM: NORMAL LEFT ATRIUM: DILATED RIGHT VENTRICLE: POSITIVE PERMANENT PACEMAKER LEFT VENTRICLE: NORMAL TRICUSPID VALVE: NORMAL MITRAL VALVE: NORMAL PULMONIC VALVE: NORMAL AORTIC VALVE: NORMAL PERICARDIAL EFFUSION: NONE AORTIC ROOT: NORMAL LEFT VENTRICULAR WALL MOTION: NORMAL DOPPLER/COLOR FLOW: MODERATE TO SEVERE MITRAL REGURGITATION. MILD TRICUSPID REGURGITATION - MODERATE PULMONARY HYPERTENSION 55 mmHg COMMENTS: 1. PERMANENT PACEMAKER IN RIGHT VENTRICLE. 2. NORMAL LEFT VENTRICULAR SIZE AND FUNCTION 3. MODERATE TO SEVERE MITRAL REGURGITATION 4. MODERATE PULMONARY HYPERTENSION. RIGHT VENTRICULAR SYSTOLIC PRESSURE 55 mmHg TECHNOLOGIST: JORGE MCDONALD
--- NOTE | 2022-12-27 21:07 | CON ---
Reason For Consultation: Possible stroke. History Of Present Illness: Ms. Goode is a 77-year-old right-handed patient with atrial fibrillation, dyslipidemia, diabetes mellitus, and has had triple-vessel coronary artery bypass graf flannery who now comes to [facility] with right face, arm, and leg numbness with some confusion and disorientation. Symptoms began last night. She woke up around 1 a.m. noted the symptoms as note d. She went back to sleep, woke up later, symptoms did not resolve. She subsequently checked with h er primary care physician and was advised to come to [facility] for stroke workup. Since sh manuel was well out of the window for TNKs, she was evaluated for large vessel disease. Her head and neck CT angiogram showed no evidence of significant flow abnormalities and was therefore not a candidate for large vessel intervention. The patient said she was taking Eliquis 5 mg twice daily. She had ad ded aspirin 81 mg daily and folic acid 1 mg daily to her regimen. She did receive some fluids along with magnesium. Since onset she says symptoms have improved somewhat, but she still has right face, arm, and leg numbness. She denies weakness. Past Medical History: As indicated. Family History: Noncontributory. Allergies: DULOXETINE, IODINE, AND PREGABALIN. Review of Systems: She denies any recent fevers, chills, nausea, vomiting, myalgias, arthralgias, rash, headache, or chelsi ght change. No psychiatric issues. No gastrointestinal or genitourinary issues. Social History: No alcohol, tobacco, or IV drug use. Physical Examination: Vital Signs: Blood pressure 110/73, pulse 63, respiratory rate 17, temperature 98, and oxygen satura tion 100%. General: Ms. Goode is resting in bed. She is in no acute distress. HEENT: She is normocephalic, atraumatic. Sclerae anicteric. Oropharynx is pink and moist. Neck: Supple. Chest: Clear. Heart: Irregularly irregular. Abdomen: Soft. Extremities: No clubbing, cyanosis, or edema. Neurological: She is alert and oriented to situation, place, and person. Her cranial nerve deficits are decreased to light touch and temperature over the right compared to left face. Otherwise, intac t with full excursions of nasolabial fold. Tongue and palate are midline. Motor exam is 5/5 proxima lly and distally in upper and lower extremities. Sensory exam decreased to light touch and temperatu re in the right upper and lower extremities compared to the left side. Coordination intact in upper and lower extremities. Reflexes symmetric in upper and lower extremities. She will be ambulated wit h physical therapy and will use a gait belt. Note in terms of cranial nerves, she has normal labial, lingual, and guttural sounds. Laboratory Studies: Complete blood count with differential shows a low white blood cell count of 3.2 , hemoglobin slightly low at 11, and platelets 183. INR 1.55. Chemistries remarkable for renal insu fficiency, creatinine 2.15, potassium low at 3.4, otherwise normal sodium and chloride, BUN elevated to 101, glucose elevated to 177. Uric acid 4.3. Phosphorus 5.4, calcium 8.9, AST 25, ALT 24, alkali ne phosphatase 96. TSH 0.808. Urinalysis: Esterase 25, otherwise normal. She has complement C3 an d C4 and BASILIA screening pending. Her electrocardiogram shows a paced rhythm with left axis deviation. Her echocardiogram shows ejection fraction 76%, [id number] mitral regurgitation, moderate p ulmonary hypertension, and permanent pacemaker in the right ventricle. Assessment: Ms. Goode is a 77-year-old patient with coronary artery disease status post 3 vessel cardiac bypass grafting. She has renal insufficiency, diabetes mellitus, dyslipidemia along with atr ial fibrillation, and pacemaker. She does have what appears to be a focal deficit of right face, arm , and leg numbness. CT scan shows no acute ischemic or hemorrhagic change. Due to her pacemaker, mariana jackson cannot get a brain MRI at [facility]. Plan: 1.Evaluate by Physical Therapy to see what level of therapy may be beneficial. 2.She may have an MRI in [place], where MRIs may be done if the pacemaker could be appropriately eit her shielded or adjusted. 3.I agree with the Eliquis 5 mg twice daily. May give aspirin 81 mg daily for a month. 4.Continue with aggressive management of dyslipidemia and diabetes mellitus. LB/MODL Voice ID: [id number] Report ID: [id number]
--- NOTE | 2022-12-27 21:34 | P.CNS ---
Date of Consult: 12/27/22 Reason for Consult: LINDA/ CKD Requesting Physician: Yrn Sher Primary Care Provider: Dr. Sher Chief Complaint: TIA History of Present Illness: Patient is a pleasant woman with a history of heart failure. She was in the office this morning. She woke up at 1am today with some numbness and weakness in the right side of her body. She was up till 3:30 Went back to sleep. In the morning she had difficulty finding words. She was having difficulty reading and her neighbor brought her to the office. The patient was having some weakness in her right side in relation to her left. Discussed with Dr. Henson and sent the patient to the ER. The CT scan did not show any large vessel occlusion that would benefit from intervention. 17:05 This 77 yrs old Female presents to ER via Wheelchair with complaints of Numbness Of rt Hand, Headache. 17:05 Patient presents to the ED from primary care office out of concern for possible acute rt stroke. Patient has not been feeling well since yesterday, however, she stated that she noted a right-sided numbness, weakness starting about 1 AM this morning. The patient states that symptoms have somewhat improved but have not resolved. Patient was seen her primary care's office today who sent her to the ED to be evaluated for acute CVA, possible LVO. Denies other acute complaints at this time, symptoms are moderate in severity, no other aggravating or alleviating factors. She reports waking up with right sides numbness and urinary incontinence. She reports intermittent difficulty with urination. No NSAIDs. She was following with an out of town online services manager prior to moving to the area. She was told she had stable CKD III. She reports a history of DM with polyneuropathy and HTN prior to losing a 100 lbs. Her brother was on dialysis due to DM. Allergies duloxetine [From Cymbalta] Allergy (Verified 12/26/22 18:38) Itching/Hives/Rash iodine Allergy (Verified 12/26/22 18:36) Shortness of breath pregabalin [From Lyrica] Allergy (Verified 12/26/22 18:37) Itching/Hives/Rash Home medications list reviewed: Yes Home Medications: Apixaban [Eliquis] 1 tab PO BID 12/27/22 Atorvastatin Calcium [Lipitor] 80 mg PO DAILY 12/27/22 Esomeprazole Magnesium 1 tab PO DAILY 12/27/22 Fish Oil/Borage/Flax/Om3,6,9 1 [[place] 3-6-9 1,200 mg Softgel] 1,200 mg PO BID 12/27/22 Gabapentin 600 mg PO Q6H 12/27/22 Levothyroxine [Synthroid*] 1 tab PO DAILY 12/27/22 Metoprolol Tartrate [Lopressor] 1 tab PO DAILY 12/27/22 Montelukast [Singulair*] 1 tab PO DAILY 12/27/22 Potassium Chloride 20 meq PO BID 12/27/22 Torsemide 1 tab PO DAILY 12/27/22 allopurinoL [Zyloprim] 300 mg PO DAILY 12/27/22 - Past Medical/Surgical History -: Hx DM -: Hx HTN -: CKD III (Dr. Brady) -: HypoTSH -: Paroxysmal Afib -: Varicose veins Review of Systems 10-point ROS is otherwise unremarkable General: Weakness Physical Examination Temp Pulse Resp BP Pulse Ox 97.6 F 61 17 116/53 L 99 12/27/22 20:00 12/27/22 20:00 12/27/22 20:00 12/27/22 20:00 12/27/22 20:00 General: In no apparent distress, Oriented x3, Cooperative HEENT: Atraumatic Neck: Supple Respiratory: Clear to auscultation bilaterally Cardiovascular: No edema, Irregular heart rate/rhythm Gastrointestinal: Soft and benign, Non-distended Musculoskeletal: No clubbing, No contractures Integumentary: No rashes, No cyanosis Neurological: Normal speech Blood work reviewed in the chart. Imagings Data: EXAM DESCRIPTION: US - Renal Ultrasound-Complete - 12/27/2022 5:06 am CLINICAL HISTORY: LINDA/ CKD COMPARISON: No comparisons FINDINGS: Both kidneys are normal in size, shape and echotexture. Small benign bilateral renal cysts. The right kidney measures 10.9 x 3.9 x 3.6 cm. No hydronephrosis, focal mass or perinephric fluid. The left kidney measures 10.3 x 5.3 x 4.2 cm. No hydronephrosis, focal mass or perinephric fluid. The urinary bladder is incompletely distended without gross abnormality seen. IMPRESSION: Benign bilateral renal cysts, otherwise negative study. EXAM DESCRIPTION: RAD - Chest Single View - 12/26/2022 3:33 pm CLINICAL HISTORY: CVA Chest pain. COMPARISON: <Comparisons> FINDINGS: Portable technique limits examination quality. Mild interstitial pulmonary edema. The heart is moderately enlarged. Dual lead pacer device is present.Sternotomy wires noted. IMPRESSION: Mild to moderate CHF. LEFT VENTRICULAR WALL MOTION: NORMAL DOPPLER/COLOR FLOW: MODERATE TO SEVERE MITRAL REGURGITATION. MILD TRICUSPID REGURGITATION MODERATE PULMONARY HYPERTENSION 55 mmHg COMMENTS: 1. PERMANENT PACEMAKER IN RIGHT VENTRICLE. 2. NORMAL LEFT VENTRICULAR SIZE AND FUNCTION 3. MODERATE TO SEVERE MITRAL REGURGITATION 4. MODERATE PULMONARY HYPERTENSION. RIGHT VENTRICULAR SYSTOLIC PRESSURE 55 mmHg Conclusions/Impression: LINDA may be due to hypovolemia CKD III/ IV -No NSAIDs -LR X1L Hypokalemia -Replete potassium Moderate Pulmonary HTN Severe MR -Daily weight Hx DM with hyperglycemia -Check A1C Anemia in chronic illness -Monitor H&H CKD MBD HyperPO4 -Start Ergo Case reviewed with Dr. Sher Thank you kindly for the consultation
[2022-12-27] MEDS ORDERED: POTASSIUM CL SA 10 MEQ TAB PO ONE (21:50)
[2022-12-27] MEDS ORDERED: DRISDOL (VITAMIN D=ERGOCALCIFEROL) 50000 UNIT CAP PO SCH (22:00)
[2022-12-27] MEDS ORDERED: Ringers Lactate 1,000 ML IV SCH (22:00)
[2022-12-28 07:06] LABS: Absolute Lymphocytes (CBC) 0.8 K/uL (0.7-4.9); Hematocrit 28.4 % (36.0-45.0); Lymphocytes % 12.1 % (15.3-44.8); MCV 99.1 fL (80-100); MPV 8.1 fL (7.6-11.3); RBC Red Blood Cell Count 2.87 M/uL (3.86-4.86)
[2022-12-28 07:24] LABS: Albumin 3.3 g/dL (3.4-5.0); Bilirubin Total 0.6 mg/dL (0.2-1.0); Potassium 3.6 mEq/L (3.5-5.1); Protein, Total 6.1 g/dL (6.4-8.2)
[2022-12-28 07:57] LABS: Hepatitis B surface AG Interp. Nonreactive (Nonreactive)
[2022-12-28 08:00] LABS: Hepatitis B Surface Ab - Quant < 3.10 mIU/mL (<8.0)
[2022-12-28] MEDS: MAGNESIUM OXIDE 400 MG TAB PO SCH (09:00)
[2022-12-28] MEDS: ASPIRIN EC 81 MG TAB PO SCH (09:00)
[2022-12-28] MEDS: APIXABAN 5 MG TABLET PO SCH (09:32)
[2022-12-28] MEDS: DOCUSATE NA 100 MG CAP PO SCH ×2 (09:32→20:45)
[2022-12-28] MEDS: FOLIC ACID 1 MG TABLET PO SCH (09:32)
[2022-12-28] MEDS: GABAPENTIN 300 MG CAP PO PRN ×2 (12:05→20:45)
--- NOTE | 2022-12-28 14:04 | PN ---
Date of Progress Note: 12/28/2022 Mrs. Goode has been followed for multiple problems including atrial fibrillation, pacemaker placem ent, history of CABG, diabetes. She is on Eliquis and aspirin right now by Neuro recommendation. Dr Kelsey Henson recommended she do that for about a month. She had came in with what may have been a TIA or CVA with negative CT scans. MRIs could not be done because of her pacemaker. Her pacemaker is fu nctioning appropriately. Echocardiogram that was done showed an ejection fraction that was normal. She had moderate pulmonary hypertension. She had [id number] mitral regurgitation, normal eje ction fraction, no effusion. The details of the echo were shared with the patient. She does follow up with Dr. Moran and I recommend she will see him in the near future. No change in therapy for no w. SANDIE/HARMONY Voice ID: [id number] Report ID: [id number]
--- NOTE | 2022-12-28 15:48 | P.PN ---
Subjective Date of Service: 12/28/22 Primary Care Provider: Dr. Sher Chief Complaint: TIA Subjective: Improving Review of Systems 10-point ROS is otherwise unremarkable Physical Examination - Vital Signs Temperature: 97.6 F Blood Pressure: 117/56 Pulse: 70 Respirations: 17 Pulse Ox (%): 99 - Physical Exam General: Alert, In no apparent distress HEENT: Atraumatic, PERRLA, EOMI Neck: Supple, JVD not distended Respiratory: Clear to auscultation bilaterally, Normal air movement Cardiovascular: Regular rate/rhythm, Normal S1 S2 Gastrointestinal: Normal bowel sounds, No tenderness Musculoskeletal: No tenderness Integumentary: No rashes Neurological: Normal speech, Normal tone, Normal affect Lymphatics: No axilla or inguinal lymphadenopathy - Studies Laboratory Data (last 24 hrs) 12/28/22 06:47: Uric Acid 4.7 12/28/22 06:47: Sodium 140, Potassium 3.6, BUN 97 H, Creatinine 2.10 H, Glucose 98, Total Bilirubin 0.6, AST 21, ALT 19, Alkaline Phosphatase 78 12/28/22 06:47: WBC 6.60, Hgb 9.4 L D, Hct 28.4 L, Plt Count 161 Assessment And Plan - Current Problems (Diagnosis) (1) TIA (transient ischemic attack) Current Visit: Yes Status: Acute Plan: will admit for neurocheck consult to Dr. Henson. Start her on aspirin, folic acid and magnesium. Will order an MRI in the morning. stroke protochol (2) Heart failure Current Visit: Yes Status: Acute Plan: consult to Dr. panchal for the cardiac and the carotid stenosis Qualifiers: Heart failure type: systolic Heart failure chronicity: chronic Qualified Code(s): I50.22 - Chronic systolic (congestive) heart failure (3) CKD stage 4 secondary to hypertension Current Visit: Yes Status: Acute Plan: will give gentle fluids. consult to nephro 4.19 patient is improving. She is being seen by Dr.. Martínez. Baseline is ckd stage 3b Discharge Plan: Home Plan to discharge in: 24 Hours Physician Review: Patient Assessed, Agree with Above Assessment and Plan Critical Care: No Time Spent Managing PTS Care (In Minutes): 25
[2022-12-28 17:33] VITALS: BMI 37.0
[2022-12-28] MEDS: POTASSIUM CL SA 10 MEQ TAB PO SCH (20:45)
--- NOTE | 2022-12-28 20:59 | P.PN ---
Date of Service: 12/28/22 Vital Signs Temp Pulse Resp BP Pulse Ox 98.1 F 82 17 117/63 94 12/28/22 20:00 12/28/22 20:00 12/28/22 20:00 12/28/22 20:00 12/28/22 20:00 Medications Allopurinol (Allopurinol 300 Mg Tab) 300 mg PO DAILY [facility] Apixaban (Apixaban 5 Mg Tablet) 5 mg PO DAILY [facility] Last Admin: 12/28/22 09:32 Dose: 5 mg Aspirin (Aspirin Ec 81 Mg Tab) 81 mg PO DAILY [facility] Last Admin: 12/28/22 09:00 Dose: Not Given Atorvastatin Calcium (Atorvastatin 80 Mg Tab) 80 mg PO BEDTIME [facility] Last Admin: 12/28/22 20:46 Dose: 80 mg Docusate Sodium (Docusate Na 100 Mg Cap) 100 mg PO BID [facility] Last Admin: 12/28/22 20:45 Dose: 100 mg Ergocalciferol (Drisdol (Vitamin D=Ergocalciferol) 22582 Unit Cap) 50,000 unit PO Q7D [facility] Last Admin: 12/28/22 00:05 Dose: 50,000 unit Folic Acid (Folic Acid 1 Mg Tablet) 1 mg PO DAILY [facility] Last Admin: 12/28/22 09:32 Dose: 1 mg Gabapentin (Gabapentin 300 Mg Cap) 600 mg PO Q6H PRN PRN Reason: MUSCLE SPASMS Last Admin: 12/28/22 20:45 Dose: 600 mg Levothyroxine Sodium (Levothyroxine Sod 0.125 Mg Tab) [facility] Magnesium Oxide (Magnesium Oxide 400 Mg Tab) 400 mg PO DAILY [facility] Last Admin: 12/28/22 09:00 Dose: 400 mg Metoprolol Tartrate (Metoprolol Tar 50 Mg Tab) 50 mg PO DAILY [facility] Potassium Chloride (Potassium Cl Sa 10 Meq Tab) 20 meq PO BID [facility] Last Admin: 12/28/22 20:45 Dose: 20 meq Sodium Chloride (Flush Normal Saline 10 Ml) 10 ml IV BID [facility] Last Admin: 12/28/22 20:46 Dose: 10 ml Lab Results (last 24 hrs) 12/28/22 12:08: POC Glucose 94 12/28/22 06:47: Hep Bs Antigen Nonreactive, Hep B Surface Ag Comm Report, Hep Bs Antibody Nonreactive, Hep Bs Antibody, Quant < 3.10 12/28/22 06:47: Hemoglobin A1c 5.8 12/28/22 06:47: Uric Acid 4.7 12/28/22 06:47: Sodium 140, Potassium 3.6, Chloride 109 H, Carbon Dioxide 26, Anion Gap 8.6, BUN 97 H, Creatinine 2.10 H, Est GFR (CKD-EPI) 24 L, Glucose 98, Calcium 8.6, Total Bilirubin 0.6, AST 21, ALT 19, Alkaline Phosphatase 78, Serum Total Protein 6.1 L, Albumin 3.3 L, Globulin 2.8, Albumin/Globulin Ratio 1.2 12/28/22 06:47: WBC 6.60, RBC 2.87 L, Hgb 9.4 L D, Hct 28.4 L, MCV 99.1, MCH 32.8, MCHC 33.1, RDW 15.9 H, Plt Count 161, MPV 8.1, Neutrophils % 81.2 H, Lymphocytes % 12.1 L, Monocytes % 6.1, Eosinophils % 0.3, Basophils % 0.3, Absolute Neutrophils 5.3, Absolute Lymphocytes 0.8, Absolute Monocytes 0.4, Absolute Eosinophils 0.0, Absolute Basophils 0.0 Assessment/ Plan: Nephrology No dyspnea No chest pain Feeling better No acute events overnight Vitals, medications, blood work and imaging reviewed in the chart. General: In no apparent distress, Oriented x3, Cooperative HEENT: Atraumatic Neck: Supple Respiratory: Clear to auscultation bilaterally Cardiovascular: No edema, Irregular heart rate/rhythm Gastrointestinal: Soft and benign, Non-distended Musculoskeletal: No clubbing, No contractures Integumentary: No rashes, No cyanosis Neurological: Normal speech Blood work reviewed in the chart. Imagings Data: EXAM DESCRIPTION: US - Renal Ultrasound-Complete - 12/27/2022 5:06 am CLINICAL HISTORY: LINDA/ CKD COMPARISON: No comparisons FINDINGS: Both kidneys are normal in size, shape and echotexture. Small benign bilateral renal cysts. The right kidney measures 10.9 x 3.9 x 3.6 cm. No hydronephrosis, focal mass or perinephric fluid. The left kidney measures 10.3 x 5.3 x 4.2 cm. No hydronephrosis, focal mass or perinephric fluid. The urinary bladder is incompletely distended without gross abnormality seen. IMPRESSION: Benign bilateral renal cysts, otherwise negative study. EXAM DESCRIPTION: RAD - Chest Single View - 12/26/2022 3:33 pm CLINICAL HISTORY: CVA Chest pain. COMPARISON: <Comparisons> FINDINGS: Portable technique limits examination quality. Mild interstitial pulmonary edema. The heart is moderately enlarged. Dual lead pacer device is present.Sternotomy wires noted. IMPRESSION: Mild to moderate CHF. LEFT VENTRICULAR WALL MOTION: NORMAL DOPPLER/COLOR FLOW: MODERATE TO SEVERE MITRAL REGURGITATION. MILD TRICUSPID REGURGITATION MODERATE PULMONARY HYPERTENSION 55 mmHg COMMENTS: 1. PERMANENT PACEMAKER IN RIGHT VENTRICLE. 2. NORMAL LEFT VENTRICULAR SIZE AND FUNCTION 3. MODERATE TO SEVERE MITRAL REGURGITATION 4. MODERATE PULMONARY HYPERTENSION. RIGHT VENTRICULAR SYSTOLIC PRESSURE 55 mmHg Conclusions/Impression: LINDA may be due to hypovolemia CKD III/ IV -No NSAIDs -Start 1/2NS Hypokalemia -Replete potassium Moderate Pulmonary HTN Severe MR -Daily weight Hx DM A1C 5.8 -No sugar diet Anemia in chronic illness -Monitor H&H CKD MBD HyperPO4 -Continue Ergo Case reviewed with Dr. Sher
[2022-12-28] MEDS ORDERED: APIXABAN 5 MG TABLET PO SCH (21:00)
[2022-12-28] MEDS ORDERED: ATORVASTATIN 80 MG TAB PO SCH (21:00)
[2022-12-28] MEDS ORDERED: HOME MED 1 EA UNK (Potassium Chloride [Potassium Chloride] 20 MEQ Tablet.Er) PO SCH (21:00)
[2022-12-28] MEDS: NACHLORIDE 0.45% 1,000 ML IV SCH (22:37)
[2022-12-29 00:56] LABS: Renal Epithelial <5 /HPF (None Seen); Specific Gravity 1.016 (1.005-1.030); Transitional Epithelial <5 /HPF (None Seen); Urine Bacteria <20 /HPF (<20); Urine Bilirubin NEGATIVE (Negative); Urine Blood Trace (Negative); Urine Clarity Turbid (Clear); Urine Color Light-Yellow (Yellow); Urine Glucose NEGATIVE (Negative); Urine Mucus Slight /HPF (None Seen); Urine Protein 1+ (Negative); Urine RBC <5 /HPF (None Seen); Urine Urobilinogen Normal (Normal); Urine WBC Clump Few /HPF (None Seen)
[2022-12-29 01:11] LABS: UR PROTEIN 35.8 mg/dL (<11.9); Urine Protein/Creatinine Ratio 0.49 ratio (<0.15)
[2022-12-29 01:56] LABS: UR MICROALBUMIN 15.1 mg/dL (< 1.9)
[2022-12-29] MEDS ORDERED: LEVOTHYROXINE SOD 0.125 MG TAB PO SCH (06:30)
[2022-12-29 06:41] LABS: Absolute Lymphocytes (CBC) 0.9 K/uL (0.7-4.9); Hematocrit 28.1 % (36.0-45.0); Lymphocytes % 11.2 % (15.3-44.8); MCV 98.5 fL (80-100); MPV 8.5 fL (7.6-11.3); RBC Red Blood Cell Count 2.85 M/uL (3.86-4.86)
[2022-12-29 06:57] LABS: Albumin 3.3 g/dL (3.4-5.0); Bilirubin Total 0.9 mg/dL (0.2-1.0); Potassium 4.1 mEq/L (3.5-5.1)
[2022-12-29] MEDS: NACHLORIDE 0.45% 1,000 ML IV SCH (07:52)
[2022-12-29] MEDS: POTASSIUM CL SA 10 MEQ TAB PO SCH (07:53)
[2022-12-29] MEDS: DOCUSATE NA 100 MG CAP PO SCH (07:53)
[2022-12-29] MEDS: ASPIRIN EC 81 MG TAB PO SCH (07:54)
[2022-12-29] MEDS: FOLIC ACID 1 MG TABLET PO SCH (07:54)
[2022-12-29] MEDS: APIXABAN 5 MG TABLET PO SCH (07:54)
[2022-12-29] MEDS: MAGNESIUM OXIDE 400 MG TAB PO SCH (07:55)
[2022-12-29] MEDS ORDERED: METOPROLOL TAR 50 MG TAB PO SCH (09:00)
[2022-12-29] MEDS ORDERED: allopurinoL 300 MG TAB PO SCH (09:00)
[2022-12-29 11:54] VITALS: O2SAT 94
[2022-12-29 11:55] VITALS: BP 112/51; TEMP 99
--- NOTE | 2022-12-29 13:12 | P.DS ---
Admission Date: 12/28/22 Discharge Date: 12/29/22 Primary Care Provider: Dr. Sher Disposition: ROUTINE DISCHARGE Discharge Condition: GOOD Reason for Admission: TIA - Problems (1) TIA (transient ischemic attack) Current Visit: Yes Status: Acute (2) Heart failure Current Visit: Yes Status: Acute Qualifiers: Heart failure type: systolic Heart failure chronicity: chronic Qualified Code(s): I50.22 - Chronic systolic (congestive) heart failure (3) CKD stage 4 secondary to hypertension Current Visit: Yes Status: Acute Brief History of Present Illness: Patient is a pleasant woman with a history of heart failure. She was in the office this morning. She woke up at 1am today with some numbness and weakness in the right side of her body. She was up till 3:30 Went back to sleep. In the morning she had difficulty finding words. She was having difficulty reading and her neighbor brought her to the office. The patient was having some weakness in her right side in relation to her left. Discussed with Dr. Henson and sent the patient to the ER. The CT scan did not show any large vessel occlusion that would benefit from intervention. Will admit to rule out stroke in evolution Hospital Course: Patient admitted for cva. she is doing well.. Will discharge her on asp, statin, folic acid and magnesium. Will have her follow up in the office. Will have nursing arrange PT and home health for the patient . Vital Signs/Physical Exam: Temp Pulse Resp BP Pulse Ox 99 F 89 18 112/51 L 94 12/29/22 11:54 12/29/22 11:54 12/29/22 11:54 12/29/22 11:54 12/29/22 11:54 General: Alert, In no apparent distress HEENT: Atraumatic, PERRLA, EOMI Neck: Supple, JVD not distended Respiratory: Clear to auscultation bilaterally, Normal air movement Cardiovascular: Regular rate/rhythm, Normal S1 S2 Gastrointestinal: Normal bowel sounds, No tenderness Musculoskeletal: No tenderness Integumentary: No rashes Neurological: Normal speech, Normal tone, Normal affect Lymphatics: No axilla or inguinal lymphadenopathy Laboratory Data at Discharge: WBC 7.70 thou/uL (4.3-10.9) 12/29/22 06:26 Hgb 9.2 g/dL (12.0-15.0) L 12/29/22 06:26 Hct 28.1 % (36.0-45.0) L 12/29/22 06:26 Plt Count 155 thou/uL (152-406) 12/29/22 06:26 PT 17.1 SECONDS (9.5-12.5) H 12/26/22 15:15 INR 1.55 12/26/22 15:15 APTT 39.5 SECONDS (24.3-36.9) H 12/26/22 15:15 Sodium 139 mEq/L (136-145) 12/29/22 06:26 Potassium 4.1 mEq/L (3.5-5.1) D 12/29/22 06:26 BUN 93 mg/dL (7-18) H 12/29/22 06:26 Creatinine 1.98 mg/dL (0.55-1.02) H 12/29/22 06:26 Glucose 105 mg/dL (74-106) 12/29/22 06:26 Uric Acid 4.7 mg/dL (2.6-6.0) 12/28/22 06:47 Phosphorus 5.4 mg/dL (2.5-4.9) H 12/27/22 06:07 Magnesium 2.4 mg/dL (1.6-2.4) 12/26/22 15:15 Total Bilirubin 0.9 mg/dL (0.2-1.0) 12/29/22 06:26 AST 22 U/L (15-37) 12/29/22 06:26 ALT 20 U/L (13-56) 12/29/22 06:26 Alkaline Phosphatase 74 U/L (45-117) 12/29/22 06:26 Home Medications: Apixaban [Eliquis] 1 tab PO BID 12/27/22 Atorvastatin Calcium [Lipitor] 80 mg PO DAILY 12/27/22 Esomeprazole Magnesium 1 tab PO DAILY 12/27/22 Fish Oil/Borage/Flax/Om3,6,9 1 [[place] 3-6-9 1,200 mg Softgel] 1,200 mg PO BID 12/27/22 Gabapentin 600 mg PO Q6H 12/27/22 Levothyroxine [Synthroid*] 1 tab PO DAILY 12/27/22 Metoprolol Tartrate [Lopressor] 1 tab PO DAILY 12/27/22 Montelukast [Singulair*] 1 tab PO DAILY 12/27/22 Potassium Chloride 20 meq PO BID 12/27/22 Torsemide 1 tab PO DAILY 12/27/22 allopurinoL [Zyloprim] 300 mg PO DAILY 12/27/22 Atorvastatin Calcium 20 mg PO BEDTIME 90 Days #90 tab 12/29/22 Folic Acid 1 mg PO DAILY 90 Days #90 tab 12/29/22 Magnesium Oxide [Mag 0X*] 400 mg PO DAILY 90 Days #90 tab 12/29/22 New Medications: Atorvastatin Calcium 20 mg PO BEDTIME 90 Days #90 tab Folic Acid 1 mg PO DAILY 90 Days #90 tab Magnesium Oxide [Mag 0X*] 400 mg PO DAILY 90 Days #90 tab Diet: AHA Activity: Ad courtney Followup: Yrn Sher MD [Primary Care Provider] - 1 Week Time spent managing pt's care (in minutes): 30
[2022-12-31 14:53] LABS: Hepatitis C Virus RNA (PCR)log <1.18 log IU/mL
== END 2022-12-29 14:00 | disposition home or self-care (01) | DRG 65 ==
LOC: ER 14:30 → ERHOLD 16:52 → 4TH 23:04 → OBSVTOIN 12-28 13:51
PROVIDERS: ADMIT Internal Medicine; ATTEND Internal Medicine
DX: I63.9 Cerebral infarction, unspecified (principal); G81.91 Hemiplegia, unspecified affecting right dominant side; I50.22 Chronic systolic (congestive) heart failure; I13.0 Hypertensive heart and chronic kidney disease with heart failure and stage 1 through stage 4 chronic kidney disease, or unspecified chronic kidney disease; N18.4 Chronic kidney disease, stage 4 (severe); E11.22 Type 2 diabetes mellitus with diabetic chronic kidney disease; E11.42 Type 2 diabetes mellitus with diabetic polyneuropathy; E11.65 Type 2 diabetes mellitus with hyperglycemia; E78.00 Pure hypercholesterolemia, unspecified; I48.0 Paroxysmal atrial fibrillation; E87.6 Hypokalemia; E03.9 Hypothyroidism, unspecified; I34.0 Nonrheumatic mitral (valve) insufficiency; I27.20 Pulmonary hypertension, unspecified; E83.39 Other disorders of phosphorus metabolism; R20.0 Anesthesia of skin; R51.9 Headache, unspecified; Z95.5 Presence of coronary angioplasty implant and graft; Z95.1 Presence of aortocoronary bypass graft; Z95.0 Presence of cardiac pacemaker; Z88.8 Allergy status to other drugs, medicaments and biological substances; Z79.01 Long term (current) use of anticoagulants; Z79.890 Hormone replacement therapy; Z91.048 Other nonmedicinal substance allergy status; Z79.899 Other long term (current) drug therapy
CPT/HCPCS: 36415; 70450; 70496; 70498; 71045; 76770; 80048; 80053; 80076; 81001; 82043; 82570; 82947; 83036; 83735; 84100; 84156; 84443; 84484; 84550; 85025; 85610; 85730; 86038; 86160; 86706; 87086; 87088; 87340; 87522; 93005; 93306; 96361; 96374; 96375; 97116; 97161; 99285; G0378; J1200; J2930; J7030; J7120; Q9967

== ENCOUNTER 2023-03-13 16:36 | Inpatient (IN) | payer MEDICARE ==
--- OUTSIDE RECORDS SUMMARY | 2023-03-13 16:38 | XMS REPORT | Continuity of Care Document ---
:1945 Author Organization [facility] t Address [address] [place] [address] Care Team Providers Name Role Phone Yrn Sher Attending Clinician Unavailable Yvette Gavin Attending Clinician Unavailable Peyton Hollis Attending Clinician Unavailable [id number] Attending Clinician Unavailable Mariam Garcia Attending Clinician RON_S Attending Clinician Unavailable Nery Maurice Attending Clinician [id number] Admitting Clinician Unavailable CLINT Admitting Clinician Unavailable Payers Payer Name Policy Type Policy Number Effective Date Expiration Date Lizeth ayoub [facility] [id number] [facility] [id number] 2022 (MEDICARE 00:00:00 REPLACEMENT HMO) Problems Condition Condition Condition Status Onset Resolution Last Treating Co mments Source Name Details Category Date Date Treatment Clinician Date [id number] [place] of Problem Commo n right Spirit kidney [facility] [id number] Peripheral Problem Com mon polyneurop Spirit athy [facility] High High Problem Common cholestero cholestero Sp zohreh l l [facility] [id number] Coronary Problem Comm on artery Spirit disease of [facility] [place] artery of [facility] [place] Medical heart with Center stable angina pectoris Heart Heart Problem Common attack attack [facility] [id number] CKD Problem Common (chronic Spirit kidney - [facility]I disease) stage [facility] GFR 15-29 Medical ml/min [place] [id number] Obstructiv Problem Com mon e sleep [facility] apnea [facility] Blood clot Blood clot Problem C [facility] Coronary Coronary Problem Commo n artery artery [facility] disease disease [facility] Anemia Anemia Problem [facility] Sleep Sleep Problem Common apnea apnea [facility] Malignant Cancer of Problem Com mon tumor of right 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 Type II Diabetes Problem Common diabetes DMII [facility] mellitus without - [facility] without complicati complicati [facility] Allergies, Adverse Reactions, Alerts Allergy Allergy Status Severity Reaction(s) Onset Inactive Treating Comm ents Source Name Type Date Date Clinician [id number] Drug Active Unknown Common 82 allergy [facility] duloxeti duloxeti Active Unknown Commo n ne ne [facility] pregabal pregabal Active Unknown Commo n in in [facility] Social History Social Habit Start Date Stop Date Quantity Comments Source Sex Assigned At Com [facility] History of Tobacco Use Co mmon [facility] Smoking Status Start Date Stop Date Source Never Smoker [facility] Medications Ordered Filled Start Stop Current Ordering Indication Dosage Frequency Signature Comments Components Source Medication Medication Date Date Medication? Clinician (SIG) Name Name LORazepam 1 LORazepam 2021-09 No BID LORazepam MG MG 2-19 1 MG 00:00: 00 LORazepam 1 LORazepam 2021-09 No BID LORazepam MG MG 2-19 1 MG 00:00: 00 LORazepam 1 LORazepam 1 2022-1 No BID LORazepam MG MG 2-19 1 [...] Comments Source height 2022-07-20 14:00:00 65.00 [in_i] [facility] weight 2022-07-20 14:00:00 200.8 [lb_av] [facility] temperature 2022-07-20 14:00:00 97.3 [degF] [facility] bmi 2022-07-20 14:00:00 33.41 kg/m2 [facility] oximetry 2022-07-20 14:00:00 99 % [facility] respiratory rate 2022-07-20 14:00:00 18 /min Comm on [facility] blood pressure 2022-07-20 14:00:00 112 mm[Hg] Common [facility] - systolic [facility] blood pressure 2022-07-20 14:00:00 55 mm[Hg] [facility] diastolic [facility] Procedures This patient has no known procedures. Encounters Start End Encounter Admission Attending Care Care Encounter Source Date/Time Date/Time Type Type Clinicians Facility Department ID 2022-10-17 Outpatient Nikky, STLMLC [facility] [id number] Common 17:00:01 Yrn [id number] [facility] 2022-09-19 Outpatient Leslye, STLMLC [facility] [id number] Common 10:22:02 Yvette [id number] [facility] 2022-08-24 Outpatient Peyton Hollis STLC [facility] [id number] Common 08:57:02 [facility] 2022-07-21 Outpatient Hollis, Peyton [facility] [id number] Common 15:20:01 [facility] 2022-07-20 Outpatient Peyton Hollis [facility] [id number] Common 13:03:05 [facility] 2021-11-17 Outpatient 3 [id number] [facility] OTH [id number] EN[facility] 10:50:01 3092021-11-16 Outpatient 3 [id number] [facility] REF [id number] [facility] 10:46:48 0302021-10-06 Outpatient 3 [id number] [facility] REF [id number] [facility] 13:31:08 12152021-10-06 Outpatient 3 [id number] [facility] REF [id number] [facility] 13:30:10 12132021-10-06 Outpatient 3 [id number] [facility] REF [id number] EN[facility]Y 13:29:18 12122023-02-22 2023-02-22 Care Mariam [id number]. [id number]. CLAC [id number] [facility] 15:30:00 16:00:00 Tarah Garcia [id number] [address] [place] [address] [id number] 2023-01-12 2023-01-12 Outpatient GAYLORD_S DMG [facility] [id number] [facility] 00:00:00 00:00:00 [id number] [facility] 2022-12-11 2022-12-11 [facility] Nery [id number]. [id number]. CLAC [id number] [facility] 16:30:00 17:30:00 Ron [id number]. [id number]. [facility] Medical [id number] 2022-11-20 2022-11-20 [place] [id number] [facility] 00:00:00 00:00:00 [id number] Medica l Group 2022-10-06 2022-10-06 (TEL) STLMLC STL[facility]C [id number] Co mmon 00:00:00 00:00:00 [facility] 2022-09-29 2022-09-29 (TEL) STLMLC STLMLC [id number] Co mmon 00:00:00 00:00:00 [facility] 2022-09-26 2022-09-26 (TEL) STLMLC STLMLC [id number] Co mmon 00:00:00 00:00:00 [facility] 2022-09-19 2022-09-19 (TEL) STLMLC STLMLC [id number] Co mmon 00:00:00 00:00:00 [facility] 2022-08-28 2022-08-28 OL DIG E/M STLMLC STLMLC [id number] Common 00:00:00 00:00:00 [facility] [place] Spir it [facility] 2022-08-27 2022-08-27 (TEL) STLMLC STLMLC [id number] Co mmon 00:00:00 00:00:00 [facility] 2022-08-15 2022-08-15 (TEL) STLMLC STLMLC [id number] Co mmon 00:00:00 00:00:00 [facility] 2022-08-15 2022-08-15 (TEL) STLMLC STLMLC [id number] Co mmon 00:00:00 00:00:00 [facility] 2022-07-28 2022-07-28 Outpatient DMG DMG [id number] [facility] 00:00:00 00:00:00 [id number] Medica l Group 2022-07-24 2022-07-24 (TEL) STLMLC STLMLC [id number] Co mmon 00:00:00 00:00:00 [facility] 2022-07-20 2022-07-20 OFFICE STLMLC STLMLC [id number] Co mmon 00:00:00 00:00:00 VISIT NEW Spir it PT LEVEL 2 [facility] Results This patient has no known results.
[2023-03-13 17:33] LABS: Protime INR 1.35
[2023-03-13 17:34] LABS: Absolute Lymphocytes (CBC) 0.7 K/uL (0.7-4.9); Hematocrit 36.6 % (36.0-45.0); Lymphocytes % 7.7 % (15.3-44.8); MCV 101.2 fL (80-100); MPV 8.7 fL (7.6-11.3); RBC Red Blood Cell Count 3.62 M/uL (3.86-4.86)
[2023-03-13 17:57] LABS: Urine Bacteria 20-50 /HPF (<20); Urine Bilirubin NEGATIVE (Negative); Urine Blood Negative (Negative); Urine Clarity Turbid (Clear); Urine Color Light-Yellow (Yellow); Urine Glucose NEGATIVE (Negative); Urine Protein NEGATIVE (Negative); Urine RBC <5 /HPF (None Seen); Urine Urobilinogen Normal (Normal)
--- NOTE | 2023-03-13 18:05 | RAD REPORT ---
EXAM DESCRIPTION: RADChest Single View03/13/2023 5:50 pm CLINICAL HISTORY: cardiac hx COMPARISON: Chest Single View dated 12/26/2022 TECHNIQUE: Portable AP view of the chest. FINDINGS: The lungs are clear. Improving central interstitial prominence. No pneumothorax or effusi on. The cardiomediastinal contours are unchanged, with sequelae of prior CABG and left chest wall pac er/AICD again seen. IMPRESSION: No acute cardiopulmonary process. Improving central interstitial prominence.
--- NOTE | 2023-03-13 18:24 | RAD REPORT ---
EXAM DESCRIPTION: CT - Head Brain Wo Cont - 03/13/2023 5:54 pm CLINICAL HISTORY: CONFUSED COMPARISON: Ct Stroke Brain Wo Cont dated 12/26/2022 TECHNIQUE: Noncontrast head CT images were obtained without IV contrast. Multiplanar reformats were generated and reviewed. All CT scans are performed using dose optimization technique as appropriate and may include automated exposure control or mA/KV adjustment according to patient size. FINDINGS: No intracranial hemorrhage, mass, or edema. Midline structures are unremarkable. Normal ventricular caliber for age. Ospina-white matter differentiation is preserved, without evidence of acute infarct. No abnormal extra- axial fluid collections. Mastoid air cells and visualized portions of the paranasal sinuses are clear. No acute bony findings. IMPRESSION: No evidence of an acute intracranial process.
[2023-03-13 18:42] LABS: Bilirubin Direct 0.4 mg/dL (0-0.2); Bilirubin Indirect, Calculated 0.6 mg/dL (0.2-0.8); Magnesium 2.3 mg/dL (1.6-2.4); Potassium 3.5 mEq/L (3.5-5.1); Protein, Total 7.5 g/dL (6.4-8.2)
[2023-03-13 18:43] LABS: Troponin High Sensitivity 98.2 pg/mL (<58.9)
--- NOTE | 2023-03-13 19:03 | EDPHYS ---
Physician Documentation [facility] Name: Felecia Goode Age: 77 yrs Sex: Female : 1945 Arrival Date: 03/13/2023 Time: 16:36 Bed 6 Private MD: ED Physician Mickey Hunter HPI: 03/13 17:20 This 77 yrs old Female presents to ER via EMS with complaints of altered mental status, snw on floor today. 17:20 G-DaughterRosario is POA [phone], states pt has been "talking crazy" for a snw couple of weeks. Onset: The symptoms/episode began/occurred acutely. It is unknown whether or not the patient has had similar symptoms in the past. sees Dr. Sher. Historical: - Allergies: 16:47 Cymbalta; mb9 16:47 Iodine; mb9 16:47 Lyrica; mb9 - Home Meds: 16:47 Unable to obtain [Active]; mb9 - PMHx: 16:47 Atrial fibrillation; diabetes mellitus; Hypercholesterolemia; Pacemaker; mb9 - PSHx: 16:47 cardiac stents; tripple bypass; mb9 - Immunization history:: Adult Immunizations up to date. - Social history:: Smoking status: Patient denies any tobacco usage or history of. ROS: 16:59 Eyes: Negative for injury, pain, redness, and discharge, ENT: Negative for injury, snw pain, and discharge, Neck: Negative for injury, pain, and swelling, Cardiovascular: Negative for chest pain, palpitations, and edema, Respiratory: Negative for shortness of breath, cough, wheezing, and pleuritic chest pain, Abdomen/GI: Negative for abdominal pain, nausea, vomiting, diarrhea, and constipation, Back: Negative for injury and pain, : Negative for injury, bleeding, discharge, and swelling, MS/Extremity: Negative for injury and deformity, Skin: Negative for injury, rash, and discoloration, Psych: Negative for depression, anxiety, suicide ideation, homicidal ideation, and hallucinations. 16:59 Constitutional: Positive for malaise. 16:59 Neuro: Positive for altered mental status, "talking crazy" for a couple of weeks. Exam: 16:57 Head/Face: Normocephalic, atraumatic. Eyes: Pupils equal round and reactive to light, snw extra-ocular motions intact. Lids and lashes normal. Conjunctiva and sclera are non-icteric and not injected. Cornea within normal limits. Periorbital areas with no swelling, redness, or edema. ENT: Nares patent. No nasal discharge, no septal abnormalities noted. Tympanic membranes are normal and external auditory canals are clear. Oropharynx with no redness, swelling, or masses, exudates, or evidence of obstruction, uvula midline. Mucous membranes moist. Neck: Trachea midline, no thyromegaly or masses palpated, and no cervical lymphadenopathy. Supple, full range of motion without nuchal rigidity, or vertebral point tenderness. No Meningismus. Chest/axilla: Normal chest wall appearance and motion. Nontender with no deformity. No lesions are appreciated. Cardiovascular: Regular rate and rhythm with a normal S1 and S2. No gallops, murmurs, or rubs. Normal PMI, no JVD. No pulse deficits. Respiratory: Lungs have equal breath sounds bilaterally, clear to auscultation and percussion. No rales, rhonchi or wheezes noted. No increased work of breathing, no retractions or nasal flaring. Abdomen/GI: Soft, non-tender, with normal bowel sounds. No distension or tympany. No guarding or rebound. No evidence of tenderness throughout. Back: No spinal tenderness. No costovertebral tenderness. Full range of motion. Skin: Warm, dry with normal turgor. Normal color with no rashes, no lesions, and no evidence of cellulitis. 16:57 Constitutional: The patient appears alert, awake, unkempt. 16:57 Musculoskeletal/extremity: Extremities: grossly normal except: noted in the right knee: tenderness, Circulation is intact in all extremities. Sensation intact. 16:57 Neuro: Orientation: is normal, Mentation: appropriate for stated age, Memory: appropriate for stated age, Cranial nerves: extraocular movements are intact, Speech is clear and appropriate. Tongue strength is normal, Cerebellar function: is grossly normal, Motor: is normal, Sensation: is normal, Gait: not tested. seizure activity, is not displayed by the patient. Vital Signs: 16:45 BP 138 / 59; Pulse 83; Resp 18; Temp 98.6(O); Pulse Ox 100% on R/A; Weight 102.06 kg; mb9 Height 5 ft. 5 in. ; 17:38 BP 140 / 56; Pulse 94; Resp 18; Pulse Ox 99% on R/A; mb9 18:13 BP 127 / 58; Pulse 93; Resp 20; Pulse Ox 98% on R/A; mb9 19:34 BP 132 / 49; Pulse 86; Resp 18; Pulse Ox 99% on R/A; mb9 16:45 Body Mass Index 37.44 (102.06 kg, 165.1 cm) mb9 MDM: 16:42 Patient medically screened. snw 19:03 Data reviewed: vital signs, nurses notes, lab test result(s), EKG, radiologic studies. snw 19:46 Management of patient was discussed with the following: Hospitalist: REMY Jordan at snw 50ml/hr, [facility]. Care significantly affected by the following Social Determinants of Health: Lives alone, DAVID is Grand-daughter, Rosario. Counseling: I had a detailed discussion with the patient and/or guardian regarding: the historical points, exam findings, and any diagnostic results supporting the discharge/admit diagnosis, lab results, radiology results, the need for further work-up and treatment in the hospital. 20:06 ED course: DAVID Ponce, notified of admission and pt condition. Voices understanding snw and agreement with plan of care. 03/13 16:43 Order name: Basic Metabolic Panel; Complete Time: 18:46 snw 03/13 16:43 Order name: CBC with Diff; Complete Time: 17:36 snw 03/13 16:43 Order name: LFT's; Complete Time: 18:46 snw 03/13 16:43 Order name: Magnesium; Complete Time: 18:46 snw 03/13 16:43 Order name: NT PRO-BNP; Complete Time: 18:46 snw 03/13 16:43 Order name: PT-INR; Complete Time: 17:36 snw 03/13 16:43 Order name: Troponin HS; Complete Time: 18:46 snw 03/13 16:43 Order name: CPK; Complete Time: 18:46 snw 03/13 16:43 Order name: Lactate w/ 2H reflex if indic.; Complete Time: 17:58 snw 03/13 16:43 Order name: Procalcitonin; Complete Time: 18:42 snw 03/13 16:43 Order name: Urine W/Microscopic (UAM); Complete Time: 17:58 snw 03/13 16:43 Order name: Blood Culture Adult (2) snw 03/13 19:46 Order name: Basic Metabolic Panel EDMS 03/13 19:46 Order name: Basic Metabolic Panel EDMS 03/13 19:46 Order name: CBC with Automated Diff EDMS 03/13 19:46 Order name: CBC with Automated Diff EDMS 03/13 19:46 Order name: Troponin High Sensitivity EDMS 03/13 19:46 Order name: Troponin High Sensitivity EDMS 03/13 19:46 Order name: Troponin High Sensitivity EDMS 03/13 16:43 Order name: XRAY Chest (1 view); Complete Time: 18:07 snw 03/13 17:39 Order name: CT Head Brain wo Cont; Complete Time: 18:28 snw 03/13 16:43 Order name: EKG; Complete Time: 16:44 snw 03/13 19:46 Order name: Regular EDMS 03/13 16:43 Order name: Cardiac monitoring; Complete Time: 16:45 snw 03/13 16:43 Order name: EKG - Nurse/Tech; Complete Time: 17:38 snw 03/13 16:43 Order name: IV Saline Lock; Complete Time: 16:45 snw 03/13 16:43 Order name: Labs collected and sent; Complete Time: 17:38 snw 03/13 16:43 Order name: O2 Per Protocol; Complete Time: 16:45 snw 03/13 16:43 Order name: O2 Sat Monitoring; Complete Time: 16:45 snw EC:19 Rate is 86 beats/min. Rhythm is irregular. QRS interval is prolonged. T waves are snw Normal. ST Segment is depressed in leads V3, V4, V5, 1-2mm. Clinical impression: NSR w/ Non-specific ST/T Changes. Administered Medications: 19:58 Drug: Rocephin IV 1 grams Route: IV; Rate: calculated rate; Site: left antecubital; mb9 19:59 Follow up: Response: No adverse reaction mb9 19:59 Follow up: Response: No adverse reaction; IV Status: Completed infusion mb9 Disposition: 17:06 Co-signature as Attending Physician, Mickey Hunter DO I was immediately available on-site ms3 in the Emergency Department for consultation in the care of the patient. Disposition Summary: 03/13/23 19:02 Hospitalization Ordered Hospitalization Status: Inpatient Admission snw Provider: Yrn Sher Location: Telemetry/MedSurg (Inpatient) snw Condition: Stable snw Problem: an acute exacerbation snw Symptoms: have worsened snw Bed/Room Type: Standard snw Room Assignment: 228(03/13/23 19:53) mw Diagnosis - Dehydration snw - UTI/ Urinary tract infection, site not specified snw Forms: - Medication Reconciliation Form snw - SBAR form snw Signatures: Dispatcher [employer] EDMS Siria Godoy RN RN Bita Cancino, PETAR-C BRIM FLEXER-Csnw Mickey Hunter DO DO ms3 Heike Winters RN RN mb9 Corrections: (The following items were deleted from the chart) 19:53 19:02 snw mw
--- NOTE | 2023-03-13 19:03 | ER ---
Nurse's Notes [facility] Name: Felecia Goode Age: 77 yrs Sex: Female : 1945 Arrival Date: 03/13/2023 Time: 16:36 Bed 6 Private MD: Diagnosis: Dehydration;UTI/ Urinary tract infection, site not specified Presentation: 03/13 16:45 Chief complaint: EMS states: "Toned out due to home health not opening pts home door mb9 and hearing pt cry. After PD opened door, found pt sitting on ground by bed. Pt is altered and only knows name. BGL 132, 20 g to left AC with 150 mL of NS given. VS stable.". Coronavirus screen: Vaccine status: Patient reports receiving the 2nd dose of the covid vaccine. Ebola Screen: No symptoms or risks identified at this time. Initial Sepsis Screen: Does the patient meet any 2 criteria? Altered Mental Status. Does the patient have a suspected source of infection? No. Patient's initial sepsis screen is negative. Risk Assessment: Do you want to hurt yourself or someone else? Patient reports no desire to harm self or others. Onset of symptoms was March 13, 2023. 16:45 Method Of Arrival: EMS: [facility] mb9 16:45 Acuity: KENA 2 mb9 Triage Assessment: 16:48 General: Appears in no apparent distress. Behavior is cooperative. Pain: Complains of mb9 pain in right knee Pain does not radiate. Neuro: Lehman Agitation-Sedation Scale (RASS): 0 - Alert and Calm Level of Consciousness is awake, obeys commands, confused, Oriented to person, place, time. Respiratory: Airway is patent Respiratory effort is even, unlabored, Respiratory pattern is regular, symmetrical, Breath sounds are clear bilaterally. GI: Abdomen is round non-distended, Bowel sounds present X 4 quads. Abd is soft and non tender X 4 quads. Derm: Skin is pink, warm \\T\\ dry. Musculoskeletal: Range of motion: intact in all extremities. Historical: - Allergies: 16:47 Cymbalta; mb9 16:47 Iodine; mb9 16:47 Lyrica; mb9 - Home Meds: 16:47 Unable to obtain [Active]; mb9 - PMHx: 16:47 Atrial fibrillation; diabetes mellitus; Hypercholesterolemia; Pacemaker; mb9 - PSHx: 16:47 cardiac stents; tripple bypass; mb9 - Immunization history:: Adult Immunizations up to date. - Social history:: Smoking status: Patient denies any tobacco usage or history of. Screenin:50 [facility] ED Fall Risk Assessment (Adult) History of falling in the last 3 months, mb9 including since admission Yes- single mechanical fall (1 pt) Confusion or Disorientation Yes (5 pts) Intoxicated or Sedated No (0 pts) Impaired Gait No (0 pts) Mobility Assist Device Used No (0 pt) Altered Elimination No (0 pt) Score/Fall Risk Level 0 - 2 = Low Risk Oriented to surroundings, Maintained a safe environment, Educated pt \\T\\ family on fall prevention, incl call for assistance when getting out of bed. Abuse screen: Denies threats or abuse. Nutritional screening: No deficits noted. Tuberculosis screening: No symptoms or risk factors identified. Assessment: 17:54 Reassessment: No changes from previously documented assessment. Patient and/or family mb9 updated on plan of care and expected duration. Pain level reassessed. Patient is alert, oriented x 3, equal unlabored respirations, skin warm/dry/pink. 19:00 Reassessment: No changes from previously documented assessment. Patient and/or family mb9 updated on plan of care and expected duration. Pain level reassessed. Patient is alert, oriented x 3, equal unlabored respirations, skin warm/dry/pink. 20:00 Reassessment: Attempted to call report to admitting nurse. mb9 20:05 Reassessment: No changes from previously documented assessment. Patient and/or family mb9 updated on plan of care and expected duration. Pain level reassessed. Patient is alert, oriented x 3, equal unlabored respirations, skin warm/dry/pink. Vital Signs: 16:45 BP 138 / 59; Pulse 83; Resp 18; Temp 98.6(O); Pulse Ox 100% on R/A; Weight 102.06 kg; mb9 Height 5 ft. 5 in. ; 17:38 BP 140 / 56; Pulse 94; Resp 18; Pulse Ox 99% on R/A; mb9 18:13 BP 127 / 58; Pulse 93; Resp 20; Pulse Ox 98% on R/A; mb9 19:34 BP 132 / 49; Pulse 86; Resp 18; Pulse Ox 99% on R/A; mb9 16:45 Body Mass Index 37.44 (102.06 kg, 165.1 cm) mb9 ED Course: 16:42 Patient arrived in ED. snw 16:43 [facility]oo [facility] snw 16:43 Mickey Hunter DO is Attending Physician. snw 16:45 Heike Winters, KATE is Primary Nurse. mb9 16:45 Arm band placed on. mb9 16:47 Triage completed. mb9 16:50 Placed in gown. Bed in low position. Call light in reach. Side rails up X 1. Client mb9 placed on continuous cardiac and pulse oximetry monitoring. NIBP monitoring applied. security monitor on. 16:50 No provider procedures requiring assistance completed. Maintain EMS IV. Dressing mb9 intact. Good blood return noted. Site clean \\T\\ dry. Gauge \\T\\ site: 20 g left AC. 17:38 Blood Culture Adult (2) Sent. mb9 17:38 Urine W/Microscopic (UAM) Sent. mb9 17:38 Procalcitonin Sent. mb9 17:38 CPK Sent. mb9 17:38 Basic Metabolic Panel Sent. mb9 17:38 LFT's Sent. mb9 17:38 Magnesium Sent. mb9 17:38 NT PRO-BNP Sent. mb9 17:38 Troponin HS Sent. mb9 17:52 XRAY Chest (1 view) In Process Unspecified. EDMS 17:55 CT Head Brain wo Cont In Process Unspecified. EDMS 18:45 Notified Nurse Practitioner and/or Physician Recorder Helper [employer] of a critical lab result(s), mb9 Troponin 98.2. 19:00 Yrn Sher MD is Hospitalizing Provider. snw 20:00 Patient admitted, IV remains in place. mb9 Administered Medications: 19:58 Drug: Rocephin IV 1 grams Route: IV; Rate: calculated rate; Site: left antecubital; mb9 19:59 Follow up: Response: No adverse reaction mb9 19:59 Follow up: Response: No adverse reaction; IV Status: Completed infusion mb9 Medication: 16:50 VIS not applicable for this client. mb9 Outcome: 19:02 Decision to Hospitalize by Provider. snw 20:28 Admitted to Med/surg accompanied by ness, via stretcher, room 228, with chart, Report jb4 called to KATE Dexter 20:28 Condition: stable 20:28 Discharge instructions given to patient, family, Instructed on the need for admit, Demonstrated understanding of instructions. 20:47 Patient left the ED. mb9 Signatures: Dispatcher [employer] EDMS Bita Boo, TOP CARRIER-C TOP CARRIER-Csnw Surjit Gallardo RN RN jb4 Heike Winters RN RN mb9
[2023-03-13] MEDS ORDERED: ACETAMINOPHEN 500 MG TAB PO PRN (19:40)
[2023-03-13 21:31] VITALS: BMI 35.1
[2023-03-13] MEDS: NA CHLORIDE 0.9% 1,000 ML IV SCH (21:43)
[2023-03-14 03:34] LABS: Lymphocytes % 11.7 % (15.3-44.8); MCV 100.5 fL (80-100); MPV 8.6 fL (7.6-11.3); RBC Red Blood Cell Count 3.38 M/uL (3.86-4.86)
[2023-03-14 03:52] LABS: Potassium 3.3 mEq/L (3.5-5.1)
[2023-03-14] MEDS: CEFTRIAXONE 1,000 MG in NA CHLORIDE 0.9% 50 ML IVPB SCH ×2 (08:10→08:15)
--- NOTE | 2023-03-14 08:36 | P.HP ---
Certification for Inpatient Patient admitted to: Inpatient With expected LOS: >2 Midnights Patient will require the following post-hospital care: Home Health Services Practitioner: I am a practitioner with admitting privileges, knowledge of patient current condition, hospital course, and medical plan of care. Services: Services provided to patient in accordance with Admission requirements found in Title 42 Section 412.3 of the Code of Federal Regulations Patient History Date of Service: 03/14/23 Primary Care Provider: Nikky Reason for admission: confusion, rhabdomyalsis History of Present Illness: Patient was found on the floor by her daughter. She had a TIA symptoms 2 months ago. also has chf and ckd. her renal function is improving. After her daughter found he she was brought to the ER. She does not know how long she was on the floor. Her previous presentation had to do with confusion as well. Was found to have a uti, moderate elevation of her cpk and troponin. She was admitted for observation. Allergies duloxetine [From Cymbalta] Allergy (Verified 03/13/23 21:01) Itching/Hives/Rash iodine Allergy (Verified 03/13/23 21:01) Shortness of breath pregabalin [From Lyrica] Allergy (Verified 03/13/23 21:01) Itching/Hives/Rash Home Medications: Apixaban [Eliquis] 1 tab PO BID 12/27/22 Atorvastatin Calcium [Lipitor] 80 mg PO DAILY 12/27/22 Esomeprazole Magnesium 1 tab PO DAILY 12/27/22 Fish Oil/Borage/Flax/Om3,6,9 1 [[place] 3-6-9 1,200 mg Softgel] 1,200 mg PO BID 12/27/22 Gabapentin 600 mg PO Q6H 12/27/22 Levothyroxine [Synthroid*] 1 tab PO DAILY 12/27/22 Metoprolol Tartrate [Lopressor] 1 tab PO DAILY 12/27/22 Montelukast [Singulair*] 1 tab PO DAILY 12/27/22 Potassium Chloride 20 meq PO BID 12/27/22 Torsemide 1 tab PO DAILY 12/27/22 allopurinoL [Zyloprim] 300 mg PO DAILY 12/27/22 Atorvastatin Calcium 20 mg PO BEDTIME 90 Days #90 tab 12/29/22 Folic Acid 1 mg PO DAILY 90 Days #90 tab 12/29/22 Magnesium Oxide [Mag 0X*] 400 mg PO DAILY 90 Days #90 tab 12/29/22 - Past Medical/Surgical History Has patient received pneumonia vaccine in the past: Yes -: Hx DM -: Hx HTN -: CKD III (Dr. Brady) -: HypoTSH -: Paroxysmal Afib -: Varicose veins - Social History Smoking Status: Former smoker Alcohol use: No CD- Drugs: No Caffeine use: Yes Place of Residence: Home Review of Systems 10-point ROS is otherwise unremarkable General: Weakness Physical Examination - Vital Signs Temperature: 97.2 F Blood Pressure: 112/55 Pulse: 87 Respirations: 18 Pulse Ox (%): 97 - Physical Exam General: Alert, In no apparent distress HEENT: Atraumatic, PERRLA, Mucous membr. moist/pink, EOMI, Sclerae nonicteric Neck: Supple, 2+ carotid pulse no bruit, No LAD, Without JVD or thyroid abnormality Respiratory: Clear to auscultation bilaterally, Normal air movement Cardiovascular: Regular rate/rhythm, Normal S1 S2 Gastrointestinal: Normal bowel sounds, No tenderness Musculoskeletal: No tenderness Integumentary: No rashes Neurological: Normal gait, Normal speech, Normal strength at 5/5 x4 extr, Normal tone, Normal affect Lymphatics: No axilla or inguinal lymphadenopathy - Studies Laboratory Data (last 24 hrs) 03/13/23 17:12: PT 14.8 H, INR 1.35 03/13/23 17:12: WBC 9.60, Hgb 11.9 L, Hct 36.6, Plt Count 237 03/13/23 17:12: Sodium 142, Potassium 3.5, BUN 60 H, Creatinine 1.47 H, Glucose 120 H, Magnesium 2.3, Total Bilirubin 1.0, AST 47 H, ALT 26, Alkaline Phosphatase 101 Assessment and Plan - Problems (Diagnosis) (1) UTI (urinary tract infection) Current Visit: Yes Status: Acute Plan: will treat with rocephin. Qualifiers: Urinary tract infection type: acute cystitis (2) Confusion Current Visit: Yes Status: Acute Plan: May be due to underlying cerbrovascular disease. Or just weakness. Will consult Dr. Henson and PT for the patient . Will need home health on discharge. A uti may also be the reason for her confusion (3) CKD (chronic kidney disease) stage 3, GFR 30-59 ml/min Current Visit: No Status: Acute Plan: Gentle hydration. Will monitor her cpk and creatine. She is actually improving from her Deb labs. Qualifiers: Chronic kidney disease stage 3 subtype: stage 3a (GFR 45-59) Qualified Code(s): N18.31 - Chronic kidney disease, stage 3a (4) Heart failure Current Visit: No Status: Acute Plan: Patient is stable. Will continue gently hydration and stop if she starts developing edema Qualifiers: Heart failure type: systolic Heart failure chronicity: chronic Qualified Code(s): I50.22 - Chronic systolic (congestive) heart failure Discharge Plan: Home Plan to discharge in: 48 Hours - Advance Directives Does patient have a Living Will: Yes Does patient have a Durable POA for Healthcare: Yes - Code Status/Comfort Care Code Status Assessed: No Physician Review: Patient Assessed, Agree with Above Assessment and Plan Critical Care: No Time Spent Managing Pts Care (In Minutes): 45
[2023-03-14] MEDS: MAGNESIUM OXIDE 400 MG TAB PO SCH (09:00)
[2023-03-14] MEDS ORDERED: HOME MED 1 EA UNK (Esomeprazole Magnesium [Esomeprazole Magnesium] 40 MG Capsule.Dr) PO SCH (09:00)
[2023-03-14] MEDS: APIXABAN 5 MG TABLET PO SCH ×2 (09:21→19:56)
[2023-03-14] MEDS: PANTOPRAZOLE 40MG TABLET PO SCH (09:21)
[2023-03-14] MEDS: LEVOTHYROXINE SOD 0.125 MG TAB PO SCH (09:22)
[2023-03-14] MEDS: MONTELUKAST 10 MG TAB PO SCH (09:22)
[2023-03-14] MEDS: FOLIC ACID 1 MG TABLET PO SCH (09:22)
[2023-03-14] MEDS: allopurinoL 300 MG TAB PO SCH (09:22)
[2023-03-14] MEDS: METOPROLOL TAR 50 MG TAB PO SCH (09:22)
[2023-03-14] MEDS: DOCOSAHEXANOIC AC/EPA 1000 MG PO SCH ×2 (09:22→19:56)
--- NOTE | 2023-03-14 12:30 | EKG ---
Test Date: 2023-03-13 Test Time: 17:15:01 Classics Professor: MARISSA MEASUREMENT RESULTS: Intervals: Rate: 86 OH: 166 QRSD: 124 QT: 446 QTc: 533 Mission: P: 44 OH: 166 QRS: -24 T: 152 INTERPRETIVE STATEMENTS: Sinus rhythm with premature supraventricular complexes and premature ventricular complexes or fusion complexes Left ventricular hypertrophy with QRS widening and repolarization abnormality Abnormal ECG Compared to ECG 12/26/2022 15:13:03 Atrial premature complex(es) now present Fusion complex(es) now present Ventricular premature complex(es) now present Left ventricular hypertrophy now present Early repolarization now present Ventricular-paced complex(es) or rhythm no longer present Left-axis deviation no longer present Myocardial infarct finding no longer present Electronically Signed On 03-14-23 12:29:28 CDT by Warren Craig
[2023-03-14] MEDS: GABAPENTIN 300 MG CAP PO SCH ×2 (12:45→17:47)
[2023-03-14] MEDS: NA CHLORIDE 0.9% 1,000 ML IV SCH (16:00)
[2023-03-14] MEDS: ATORVASTATIN 80 MG TAB PO SCH (19:56)
[2023-03-15] MEDS: GABAPENTIN 300 MG CAP PO SCH ×4 (00:15→16:51)
[2023-03-15] MEDS: NA CHLORIDE 0.9% 1,000 ML IV SCH (00:21)
[2023-03-15 06:05] LABS: Absolute Lymphocytes (CBC) 1.1 K/uL (0.7-4.9); Hematocrit 34.2 % (36.0-45.0); Lymphocytes % 18.7 % (15.3-44.8); MCV 102.2 fL (80-100); MPV 8.2 fL (7.6-11.3); RBC Red Blood Cell Count 3.34 M/uL (3.86-4.86)
[2023-03-15] MEDS: LEVOTHYROXINE SOD 0.125 MG TAB PO SCH (06:13)
[2023-03-15 06:14] LABS: Albumin 3.3 g/dL (3.4-5.0); Bilirubin Total 0.8 mg/dL (0.2-1.0); Potassium 3.3 mEq/L (3.5-5.1); Protein, Total 6.5 g/dL (6.4-8.2); Thyroid Stimulating Hormone 1.23 uIU/mL (0.358-3.740)
[2023-03-15] MEDS: PANTOPRAZOLE 40MG TABLET PO SCH (08:35)
[2023-03-15] MEDS: DOCOSAHEXANOIC AC/EPA 1000 MG PO SCH ×2 (08:36→22:17)
[2023-03-15] MEDS: MAGNESIUM OXIDE 400 MG TAB PO SCH (08:36)
[2023-03-15] MEDS: MONTELUKAST 10 MG TAB PO SCH (08:36)
[2023-03-15] MEDS: METOPROLOL TAR 50 MG TAB PO SCH (08:36)
[2023-03-15] MEDS: APIXABAN 5 MG TABLET PO SCH ×2 (08:36→22:16)
[2023-03-15] MEDS: FOLIC ACID 1 MG TABLET PO SCH (08:36)
[2023-03-15] MEDS: CEFTRIAXONE 1,000 MG in NA CHLORIDE 0.9% 50 ML IVPB SCH (08:36)
[2023-03-15] MEDS: allopurinoL 300 MG TAB PO SCH (08:36)
--- NOTE | 2023-03-15 08:38 | P.PN ---
Subjective Date of Service: 03/15/23 Primary Care Provider: Nikky Chief Complaint: confusion, rhabdomyalsis Subjective: No new changes Review of Systems 10-point ROS is otherwise unremarkable Physical Examination - Vital Signs Temperature: 97.7 F Blood Pressure: 120/52 Pulse: 71 Respirations: 16 Pulse Ox (%): 98 - Physical Exam General: Alert, In no apparent distress HEENT: Atraumatic, PERRLA, EOMI Neck: Supple, JVD not distended Respiratory: Clear to auscultation bilaterally, Normal air movement Cardiovascular: Regular rate/rhythm, Normal S1 S2 Gastrointestinal: Normal bowel sounds, No tenderness Musculoskeletal: No tenderness Integumentary: No rashes Neurological: Normal speech, Normal tone, Normal affect Lymphatics: No axilla or inguinal lymphadenopathy Assessment And Plan - Current Problems (Diagnosis) (1) UTI (urinary tract infection) Current Visit: Yes Status: Acute Plan: will treat with rocephin. Qualifiers: Urinary tract infection type: acute cystitis (2) CKD (chronic kidney disease) stage 3, GFR 30-59 ml/min Current Visit: No Status: Acute Plan: Gentle hydration. Will monitor her cpk and creatine. She is actually improving from her Deb labs. Qualifiers: Chronic kidney disease stage 3 subtype: stage 3a (GFR 45-59) Qualified Code(s): N18.31 - Chronic kidney disease, stage 3a (3) Heart failure Current Visit: No Status: Acute Plan: Patient is stable. Will continue gently hydration and stop if she starts developing edema Qualifiers: Heart failure type: systolic Heart failure chronicity: chronic Qualified Code(s): I50.22 - Chronic systolic (congestive) heart failure (4) Confusion Current Visit: Yes Status: Acute Plan: May be due to underlying cerbrovascular disease. Or just weakness. Will consult Dr. Henson and PT for the patient . Will need home health on discharge. A uti may also be the reason for her confusion (5) Unspecified protein-calorie malnutrition Current Visit: Yes Status: Acute Plan: will check the cpk on the patient. Will need to start ambulating her. Hopefully we can D/c tomorrow Qualifiers: Protein-calorie malnutrition severity: moderate Qualified Code(s): E44.0 - Moderate protein-calorie malnutrition Discharge Plan: Home Plan to discharge in: 24 Hours - Code Status/Comfort Care Code Status Assessed: No Physician Review: Patient Assessed, Agree with Above Assessment and Plan Critical Care: No Time Spent Managing PTS Care (In Minutes): 20
[2023-03-15] MEDS: ATORVASTATIN 80 MG TAB PO SCH (22:17)
[2023-03-16] MEDS: GABAPENTIN 300 MG CAP PO SCH ×3 (00:35→12:00)
[2023-03-16] MEDS: LEVOTHYROXINE SOD 0.125 MG TAB PO SCH (06:40)
[2023-03-16 07:43] LABS: Hematocrit 31.9 % (36.0-45.0); Lymphocytes % 17.9 % (15.3-44.8); MCV 100.8 fL (80-100); RBC Red Blood Cell Count 3.16 M/uL (3.86-4.86)
[2023-03-16 08:17] LABS: Albumin 3.1 g/dL (3.4-5.0); Bilirubin Total 0.6 mg/dL (0.2-1.0); Potassium 3.4 mEq/L (3.5-5.1); Protein, Total 6.2 g/dL (6.4-8.2)
[2023-03-16] MEDS: APIXABAN 5 MG TABLET PO SCH (08:48)
[2023-03-16] MEDS: DOCOSAHEXANOIC AC/EPA 1000 MG PO SCH (08:48)
[2023-03-16] MEDS: MONTELUKAST 10 MG TAB PO SCH (08:48)
[2023-03-16] MEDS: allopurinoL 300 MG TAB PO SCH (08:48)
[2023-03-16] MEDS: METOPROLOL TAR 50 MG TAB PO SCH (08:48)
[2023-03-16] MEDS: PANTOPRAZOLE 40MG TABLET PO SCH (08:48)
[2023-03-16] MEDS: FOLIC ACID 1 MG TABLET PO SCH (08:48)
[2023-03-16] MEDS: MAGNESIUM OXIDE 400 MG TAB PO SCH (08:48)
[2023-03-16] MEDS: CEFTRIAXONE 1,000 MG in NA CHLORIDE 0.9% 50 ML IVPB SCH (08:49)
[2023-03-16 10:15] VITALS: O2SAT 99
--- NOTE | 2023-03-16 10:37 | P.DS ---
Admission Date: 03/13/23 Discharge Date: 03/16/23 Primary Care Provider: Nikky Disposition: TRANSFER TO ALF Discharge Condition: GOOD Reason for Admission: confusion, rhabdomyalsis - Problems (1) UTI (urinary tract infection) Current Visit: Yes Status: Acute Qualifiers: Urinary tract infection type: acute cystitis (2) CKD (chronic kidney disease) stage 3, GFR 30-59 ml/min Current Visit: No Status: Acute Qualifiers: Chronic kidney disease stage 3 subtype: stage 3a (GFR 45-59) Qualified Code(s): N18.31 - Chronic kidney disease, stage 3a (3) Heart failure Current Visit: No Status: Acute Qualifiers: Heart failure type: systolic Heart failure chronicity: chronic Qualified Code(s): I50.22 - Chronic systolic (congestive) heart failure (4) Confusion Current Visit: Yes Status: Acute (5) Unspecified protein-calorie malnutrition Current Visit: Yes Status: Acute Qualifiers: Protein-calorie malnutrition severity: moderate Qualified Code(s): E44.0 - Moderate protein-calorie malnutrition Brief History of Present Illness: Patient was found on the floor by her daughter. She had a TIA symptoms 2 months ago. also has chf and ckd. her renal function is improving. After her daughter found he she was brought to the ER. She does not know how long she was on the floor. Her previous presentation had to do with confusion as well. Was found to have a uti, moderate elevation of her cpk and troponin. She was admitted for observation. Hospital Course: Patient was admitted started on iv antibiotics. She was seen by PT for the weakness. Will set up home health and PT for the patient. She can follow up with me next week. Thank you for allowing me to take part in her care. Vital Signs/Physical Exam: Temp Pulse Resp BP Pulse Ox 98.2 F 65 16 117/52 L 99 03/16/23 07:48 03/16/23 07:48 03/16/23 07:48 03/16/23 07:48 03/16/23 07:48 General: Alert, In no apparent distress HEENT: Atraumatic, PERRLA, EOMI Neck: Supple, JVD not distended Respiratory: Clear to auscultation bilaterally, Normal air movement Cardiovascular: Regular rate/rhythm, Normal S1 S2 Gastrointestinal: Normal bowel sounds, No tenderness Musculoskeletal: No tenderness Integumentary: No rashes Neurological: Normal speech, Normal tone, Normal affect Lymphatics: No axilla or inguinal lymphadenopathy Laboratory Data at Discharge: WBC 5.60 thou/uL (4.3-10.9) 03/16/23 06:47 Hgb 10.7 g/dL (12.0-15.0) L 03/16/23 06:47 Hct 31.9 % (36.0-45.0) L 03/16/23 06:47 Plt Count 178 thou/uL (152-406) 03/16/23 06:47 PT 14.8 SECONDS (9.5-12.5) H 03/13/23 17:12 INR 1.35 03/13/23 17:12 Sodium 140 mEq/L (136-145) D 03/16/23 06:47 Potassium 3.4 mEq/L (3.5-5.1) L 03/16/23 06:47 BUN 38 mg/dL (7-18) H 03/16/23 06:47 Creatinine 1.10 mg/dL (0.55-1.02) H 03/16/23 06:47 Glucose 107 mg/dL (74-106) H 03/16/23 06:47 Magnesium 2.3 mg/dL (1.6-2.4) 03/13/23 17:12 Total Bilirubin 0.6 mg/dL (0.2-1.0) 03/16/23 06:47 AST 31 U/L (15-37) 03/16/23 06:47 ALT 23 U/L (13-56) 03/16/23 06:47 Alkaline Phosphatase 78 U/L (45-117) 03/16/23 06:47 Home Medications: Apixaban [Eliquis] 1 tab PO BID 12/27/22 Atorvastatin Calcium [Lipitor] 80 mg PO DAILY 12/27/22 Esomeprazole Magnesium 1 tab PO DAILY 12/27/22 Fish Oil/Borage/Flax/Om3,6,9 1 [[place] 3-6-9 1,200 mg Softgel] 1,200 mg PO BID 12/27/22 Gabapentin 600 mg PO Q6H 12/27/22 Levothyroxine [Synthroid*] 1 tab PO DAILY 12/27/22 Metoprolol Tartrate [Lopressor] 1 tab PO DAILY 12/27/22 Montelukast [Singulair*] 1 tab PO DAILY 12/27/22 Potassium Chloride 20 meq PO BID 12/27/22 Torsemide 1 tab PO DAILY 12/27/22 allopurinoL [Zyloprim] 300 mg PO DAILY 12/27/22 Atorvastatin Calcium 20 mg PO BEDTIME 90 Days #90 tab 12/29/22 Folic Acid 1 mg PO DAILY 90 Days #90 tab 12/29/22 Magnesium Oxide [Mag 0X*] 400 mg PO DAILY 90 Days #90 tab 12/29/22 Smz./Tmp. [Bactrim Ds 800 MG/160 MG] 1 tab PO BID 3 Days #6 tab 03/16/23 New Medications: Smz./Tmp. [Bactrim Ds 800 MG/160 MG] 1 tab PO BID 3 Days #6 tab Diet: AHA Activity: Ad courtney Followup: Yrn Sher MD [ACTIVE - CAN ADMIT] - 1 Week Physician Review: Patient Assessed, Agree with Above Assessment and Plan Time spent managing pt's care (in minutes): 30
[2023-03-16 11:55] VITALS: BP 112/66; TEMP 98.5
== END 2023-03-16 13:53 | disposition home health service (06) | DRG 690 ==
LOC: ER 16:36 → ERHOLD 19:45 → 2ND 20:29
PROVIDERS: ADMIT Internal Medicine; ATTEND Internal Medicine
DX: N39.0 Urinary tract infection, site not specified (principal); G93.40 Encephalopathy, unspecified; I50.22 Chronic systolic (congestive) heart failure; E44.0 Moderate protein-calorie malnutrition; N18.31 Chronic kidney disease, stage 3a; E11.22 Type 2 diabetes mellitus with diabetic chronic kidney disease; E86.0 Dehydration; I48.0 Paroxysmal atrial fibrillation; E78.00 Pure hypercholesterolemia, unspecified; Z88.8 Allergy status to other drugs, medicaments and biological substances; Z95.0 Presence of cardiac pacemaker; Z95.5 Presence of coronary angioplasty implant and graft; Z95.1 Presence of aortocoronary bypass graft; Z68.35 Body mass index [BMI] 35.0-35.9, adult; Z79.01 Long term (current) use of anticoagulants; Z79.890 Hormone replacement therapy; Z79.899 Other long term (current) drug therapy; Z87.891 Personal history of nicotine dependence
CPT/HCPCS: 36415; 70450; 71045; 80048; 80053; 80076; 81001; 82550; 82565; 82947; 83605; 83735; 83880; 84145; 84443; 84484; 85025; 85610; 87040; 93005; 94760; 96374; 97110; 97116; 97163; 97530; 99285; J0696; J7030